=== PATIENT | male | born 1970 | race Caucasian/White ===

== ENCOUNTER 2016-12-17 12:07 | Emergency (ER) | payer BC, MEDICAID, OTHER, SELFPAY ==
[~2016-12-17] VITALS: Ht 177.8 cm; Wt 77.1 kg
[~2016-12-17 12:07] MED LIST: AUGM875T27 PO; CYCL10TA PO; LIDO5DIS36 TD; NAPR500T PO; PROZ20CA11 PO
[2016-12-17] MEDS ORDERED: CLINDAMYCIN 600 MG in APPROPRIATE DILUENT 1 EA IV ONE (13:30)
[2016-12-17] MEDS ORDERED: MORPHINE 4 MG/ML 1ML SYRINGE IV ONE (13:30)
[2016-12-17] MEDS ORDERED: LIDOCAINE 1% MDV 20ML VIAL IM ONE (13:30)
[2016-12-17 13:46] LABS: BASO # 0.1 K/mm3 (0.0-0.2); BASO % 0.7 % (0.0-1.0); EOS # 0.4 K/mm3 (0.0-0.50); EOS % 3.8 % (0.0-3.0); LARGE UNSTAINED CELL # 0.2 K/mm3 (0.0-0.4); LARGE UNSTAINED CELL % 1.3 % (0.0-4.0); LYMPH # 2.2 K/mm3 (1.5-4.5); LYMPH % 17.5 % (24.0-44.0); MEAN CORPUSCULAR HEMOGLOBIN 29.2 pg (27.0-33.0); MEAN CORPUSCULAR HGB CONC 32.2 g/dl (32.0-36.5); MEAN CORPUSCULAR VOLUME 90.5 fl (80.0-96.0); MONO # 0.6 K/mm3 (0.0-0.8); MONO % 5.2 % (0.0-5.0); NEUTROPHILS # 8.2 K/mm3 (1.8-7.7); NEUTROPHILS % 71.5 % (36.0-66.0); PLATELET COUNT, AUTOMATED 316 k/mm3 (150-450); RED CELL DISTRIBUTION WIDTH 11.6 % (11.5-14.5); WHITE BLOOD COUNT 11.5 K/mm3 (4.0-10.0)
[2016-12-17 14:01] LABS: ANION GAP 4 MEQ/L (8-16); BLOOD UREA NITROGEN 15 MG/DL (7-18); CALCIUM LEVEL 8.9 MG/DL (8.5-10.1); CARBON DIOXIDE LEVEL 35 MEQ/L (21-32); CHLORIDE LEVEL 101 MEQ/L (98-107); CREATININE FOR GFR 0.93 MG/DL (0.70-1.30); GLOMERULAR FILTRATION RATE > 60.0 (>60); GLUCOSE, FASTING 86 MG/DL (70-105); SODIUM LEVEL 140 MEQ/L (136-145)
[2016-12-17] MEDS ORDERED: MORPHINE 2 MG/ML 1ML SYRINGE IV ONE (14:15)
[2016-12-17] MEDS ORDERED: CLEO300C2 PO (14:18)
[2016-12-17] MEDS ORDERED: NAPR500T PO (14:19)
[2016-12-17 14:38] VITALS: BP 128/75
== END 2016-12-17 14:40 | disposition home or self-care (01) ==
LOC: M ED 13:49
DX: L03.113 Cellulitis of right upper limb (principal); F99 Mental disorder, not otherwise specified; F17.210 Nicotine dependence, cigarettes, uncomplicated; F19.10 Other psychoactive substance abuse, uncomplicated

== ENCOUNTER 2018-10-26 12:17 | Inpatient (IN) | payer MEDICAID, OTHER ==
[~2018-10-26] VITALS: Ht 177.8 cm; Wt 68.9 kg
[~2018-10-26 12:17] MED LIST changes: -AUGM875T27 PO; +AUGM875T28 PO; +CLEO300C2 PO; -LIDO5DIS36 TD; +LIDO5DIS41 TD; +NAPR-50 PO; -NAPR500T PO
[2018-10-26 13:17] LABS: HEMATOCRIT 44.7 % (42.0-52.0); HEMOGLOBIN 15.2 g/dl (13.5-17.5); MEAN CORPUSCULAR HEMOGLOBIN 30.5 pg (27.0-33.0); MEAN CORPUSCULAR VOLUME 89.8 fl (80.0-96.0); PLATELET COUNT, AUTOMATED 210 10^3/uL (150-450); RED BLOOD COUNT 4.98 10^6/uL (4.30-6.10); WHITE BLOOD COUNT 7.8 10^3/uL (4.0-10.0)
[2018-10-26 13:41] LABS: ACETAMINOPHEN LEVEL < 2.0 UG/ML (10.0-30.0); ALBUMIN 3.6 GM/DL (3.2-5.2); ALT/SGPT 24 U/L (12-78); BILIRUBIN,DIRECT 0.2 MG/DL (0.0-0.2); BILIRUBIN,TOTAL 0.6 MG/DL (0.2-1.0); BLOOD UREA NITROGEN 10 MG/DL (7-18); CALCIUM LEVEL 8.2 MG/DL (8.5-10.1); CARBON DIOXIDE LEVEL 31 MEQ/L (21-32); CHLORIDE LEVEL 106 MEQ/L (98-107); CREATININE FOR GFR 0.89 MG/DL (0.70-1.30); ETHYL ALCOHOL (ETHANOL) < 0.003 % (0.000-0.010); GLOMERULAR FILTRATION RATE > 60.0 (>60); GLUCOSE, FASTING 96 MG/DL (70-100); POTASSIUM SERUM 4.1 MEQ/L (3.5-5.1); SALICYLATE LEVEL < 1.7 MG/DL (5.0-30.0); SODIUM LEVEL 141 MEQ/L (136-145); THYROID STIMULATING HORMONE 0.402 uIU/ML (0.358-3.740); TOTAL PROTEIN 6.4 GM/DL (6.4-8.2)
[2018-10-26 14:13] LABS: AMPHETAMINES LEVEL URINE NEGATIVE (NEGATIVE); BARBITURATES URINE NEGATIVE (NEGATIVE); BENZODIAZEPINES URINE NEGATIVE (NEGATIVE); CANNABINOIDS URINE POSITIVE (NEGATIVE); COCAINE METABOLITE URINE POSITIVE (NEGATIVE); METHADONE URINE NEGATIVE (NEGATIVE); OPIATES URINE NEGATIVE (NEGATIVE); PHENCYCLIDINE URINE NEGATIVE (NEGATIVE)
[2018-10-26] MEDS ORDERED: MAALOX 30 ML SUSP *UDC PO PRN (15:15)
[2018-10-26] MEDS ORDERED: ACETAMINOPHEN TAB 650MG DOSE (2X325MG) PO PRN (15:15)
[2018-10-26] MEDS ORDERED: traZODone 50 MG TAB PO PRN (15:15)
[2018-10-26] MEDS ORDERED: MOM 30ML SUSPENSION UDC PO PRN (15:15)
[2018-10-26 16:56] VITALS: BP 112/76
[2018-10-26] MEDS: NICOTINE 21MG/24HR 1 EA TRANSDERMAL TD SCH (17:05)
[2018-10-27 06:40] VITALS: BP 138/64
[2018-10-27] MEDS: NICOTINE 21MG/24HR 1 EA TRANSDERMAL TD SCH (09:14)
--- NOTE | 2018-10-27 10:25 | HPE ---
DATE OF ADMISSION: 10/26/2018 HISTORY OF PRESENT ILLNESS (HPI): Please refer to the psychiatric history and evaluation for further details on this admission. This examination and history is intended for medical issues, which may need treatment, followup or consult on this 48-year-old male. ALLERGIES: NO KNOWN ALLERGIES. SOCIAL HISTORY: He is single. He smokes one pack of cigarettes per day. Ethyl alcohol (EtOH): He has not had drank in 2 years. Illicit drug use: Methamphetamine, crack cocaine, marijuana. HOME MEDICATIONS: None. PAST MEDICAL HISTORY: 1. Chronic low back pain. 2. Depression/anxiety. PAST SURGICAL HISTORY: Repair of pyloric stenosis as an infant. FAMILY HISTORY: Mother alive and well. Father alive with diabetes. He has one child that committed suicide at 18 via gunshot. He has two other living children. LABORATORY STUDIES: CBC was normal. Sodium was 141, potassium 4.1, chloride 103, CO2 31, BUN 10, creatinine 0.89, calcium 8.2. Urine was positive for cocaine, positive for cannabinoids. 11 system review was done, unremarkable other than chronic low back pain. PHYSICAL EXAMINATION: 48-year-old, cooperative male, in no acute distress. Height 70 inches. Weight 68.6 kg. Body mass index (BMI) 21.7. Blood pressure 112/76. Pulse 60. Respirations 18. Temperature 98.1. Oxygen saturation 100% on room air. Patient is alert and oriented times three. Pupils equal and react to light. Extraocular movements (EOMS) intact. Cornea and sclerae clear. Conjunctiva is normal. No facial asymmetry. Tympanic membranes (TMS) are pearly bilaterally. Pharynx, tongue and gums pink and moist. Tongue is midline. Neck is supple, without lymphadenopathy. No thyromegaly. No goiter. Carotids 2+ without bruits. Chest clear to auscultation, without wheeze or retraction. Heart is regular, without murmur or gallop. Abdomen benign. Bowel sounds positive. Genitourinary ()/rectal not done. Extremities show equal strength, full range of motion. No cyanosis, clubbing or edema. Peripheral pulse equal and palpable bilaterally. Cranial nerves III-XII grossly intact. IMPRESSION/PLAN: Psychiatric: Plan per psychiatry. EKG on file 10/15/2014 shows sinus rhythm with slight sinus arrhythmia. Tobacco abuse: Nicotine patch available. Chronic low back pain. Substance abuse: Monitor for withdrawal. No acute medical issues.
--- NOTE | 2018-10-27 10:28 | MHHPEPDOC ---
General Date Of Admission: Oct 26, 2018 Legal Status: 9.39 Chief Complaint "I want to stop using methamphetamine." History of Present Illness HISTORY OF THE PRESENT ILLNESS: Patient is a 48 -year-old , male, with a history of depression, substance abuse, last admitted [facility] 12/24/15 for SI who present to ED endorsing depression and passive SI to fall asleep and not wake up due to desire to stop using methamphetamine. Pt stated in ED that he last use methamphetamine 4-5 days prior admission and used crack night prior admission. Pt also stated he's homeless sleeping on various family members couches and unemployed. Denies intent/plan for SI, denied HI in ED. Psychiatric Review of Systems Depression (2 or more weeks): depressed mood, difficulty concentrating, suicidal thoughts Laura (4 or more days of): denies Psychosis: denies Anxiety: situational anxiety, stressor related anxiety Anxiety/ 6 months or more of: restlessness, keyed up, difficulty concentrating Past Psychiatric History Previous Psychiatric Diagnosis: depression, substance abuse Previous Psychiatric Admissions: [facility] 12/24/15 for SI Suicide Attempts: denies Psychiatric Follow-up: no current Psychiatric medications: noncompliant, was on prozac in past Past Medical History Medical Problems denies Head Injury: No Seizures: No Hospitalizations: Yes Surgeries: Yes (Pyloric stenosis repair as an infant) Family Medical/Psychiatric HX Medical Problems noncontributory Psychiatric Disorders: No Addiction: No Suicide Attemps/Completions: No Addiction History nicotine, cocaine, amphetamines, methamphetamines, other (cannabis) Social History Childhood: born and raised in [place], 2 parent home, 3rd child or 6 total, good childhood Abuse/Trauma:denies Current Living Situation: homeless staying with various family members Education: high school Employment: unemployed, 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 Social Support: family Legal: incarcerated 1yr 11/05/15 for methamphetamine, DWI 10yrs ago Marital: single, never , 3 adult children he has very little contact with Mental Status Examination General Appearance: disheveled, ds/not appear stated age (older), hospital scubs/clothing Build: average Demeanor: average, withdrawn Activity: average, anxious Behavior: cooperative, withdrawn Speech: clear, spontaneous, normal volume, reg/rate,rhythm,volume Mood: depressed, anxious Mood depressed Affect: constricted, flat, appropriate, congruent, anxious Thought Process: logical/linear, slow, intact Thought Content (Delusions): none reported, denies SI, HI, AVH Thought Content (Other): none reported, appropriate Thought Content (Aggressive): none reported Perception (Hallucinations): none reported Perception (Other): none reported Cognition (Impairment of): none reported Cognition(Intelligence Est.): average Oriented: Awake, Alert, Oriented times three Insight: fair Judgment: Fair Psychosis: Denies Diagnoses Depression unspecified R/O substance induced depression secondary Methamphetamine Methamphetamine/cocaine/cannabis use d/o Assessment Pt seen and states he just wanted to stop using methamphetamine and get on with his life. States he feels better today and denies passive SI, SI. Endorses depression and anxiety. States he didn't feel prozac he was on when last here wasn't helpful so stopped on his own. Agreeable to starting effexor xr for anxiety and depression, risks/benefits discussed. Feels safe here. Denies hallucinations, delusions. Initial Treatment Plan 1. Patient was admitted on a 939 status. 2. Complete history was obtained. 3. With patients permission, family will be contacted and database will be expanded. 4. Patients medication regimen will be reviewed and changed accordingly. 5. Patient will be provided with protected environment. 6. Patient will be treated with individual, group, and milieu therapies. 7. Patient will receive supportive psych-education. 8. Discharge planning will commence immediately. 9. Outpatient follow-up treatment will be strongly recommended. 10. The initial treatment plan will focus initially on: * Depression. * Risk for suicide. * Substance abuse. 11. effexor xr 37.5 mg daily, vistaril 25mg q6hr prn anxiety ESTIMATED LENGTH OF STAY: 3-5 DAYS. TIME SPENT COUNSELING AND COORDINATING INITIAL CARE: 30 minutes. Vital Signs Vital Signs Date Time Temp Pulse Resp B/P (MAP) Pulse Ox O2 Delivery O2 Flow Rate FiO2 10/27/18 06:40 99.0 50 16 138/64 (88) 10/26/18 15:36 100 10/26/18 12:17 Room Air Laboratory Data 24H Labs Laboratory Tests 2 10/26/18 12:27: Anion Gap 4L, Glomerular Filtration Rate > 60.0, Calcium Level 8.2L, Aspartate Amino Transf (AST/SGOT) 24, Alanine Aminotransferase (ALT/SGPT) 24, Alkaline Phosphatase 52, Total Bilirubin 0.6, Direct Bilirubin 0.2, Total Protein 6.4, Albumin 3.6, Albumin/Globulin Ratio 1.29, Thyroid Stimulating Hormone (TSH) 0.402, Salicylates Level < 1.7L, Acetaminophen Level < 2.0L, Ethyl Alcohol Level < 0.003 10/26/18 12:48: Nucleated Red Blood Cells % (auto) 0.0 10/26/18 13:38: Urine Amphetamines Screen NEGATIVE, Urine Benzodiazepines Screen NEGATIVE, Urine Opiates Screen NEGATIVE, Urine Methadone Screen NEGATIVE, Urine Barbiturates Screen NEGATIVE, Urine Phencyclidine Screen NEGATIVE, Urine Cocaine Metabolite Screen POSITIVEH, Urine Cannabinoids Screen POSITIVEH CBC/BMP Laboratory Tests 10/26/18 12:27 10/26/18 12:48 Red Blood Count 4.98, Mean Corpuscular Volume 89.8, Mean Corpuscular Hemoglobin 30.5, Mean Corpuscular Hemoglobin Concent 34.0, Red Cell Distribution Width 11.8 Medications No Active Prescriptions or Reported Meds Allergies Coded Allergies: No Known Allergies (Unverified , 12/23/15) ALISON TRAVIS DO Oct 27, 2018 10:28 am
[2018-10-27] MEDS ORDERED: hydrOXYzine 25 MG TAB PO PRN (10:30)
[2018-10-27] MEDS ORDERED: VENLAFAXINE **XR** 37.5 MG CAPSULE PO ONE (10:45)
[2018-10-27 18:35] VITALS: BP 131/84
[2018-10-28 06:11] VITALS: BP 158/67
--- NOTE | 2018-10-28 08:58 | MHIPNPDOC ---
[facility] Progress Note Progress Note DATE OF SERVICE: 10/28/18 HISTORY: Patient is a 48 -year-old , male, with a history of depression, substance abuse, last admitted [facility] 12/24/15 for SI who present to ED endorsing depression and passive SI to fall asleep and not wake up due to desire to stop using methamphetamine. Pt stated in ED that he last use methamphetamine 4-5 days prior admission and used crack night prior admission. Pt also stated he's homeless sleeping on various family members couches and unemployed. Denies intent/plan for SI, denied HI in ED. VITAL SIGNS: See below. NEW TEST RESULTS: See below. CURRENT MEDICATIONS: See below. MENTAL STATUS EXAMINATION: General Appearance: disheveled, ds/not appear stated age (older), hospital scubs/clothing Build: average Demeanor: average, withdrawn Activity: average, anxious Behavior: cooperative, withdrawn Speech: clear, spontaneous, normal volume, reg/rate,rhythm,volume Mood: depressed, anxious Mood depressed Affect: constricted, flat, appropriate, congruent, anxious Thought Process: logical/linear, slow, intact Thought Content (Delusions): none reported, denies SI, HI, AVH Thought Content (Other): none reported, appropriate Thought Content (Aggressive): none reported Perception (Hallucinations): none reported Perception (Other): none reported Cognition (Impairment of): none reported Cognition(Intelligence Est.): average Oriented: Awake, Alert, Oriented times three Insight: fair Judgment: Fair Psychosis: Denies DIAGNOSES: Depression unspecified R/O substance induced depression secondary Methamphetamine Methamphetamine/cocaine/cannabis use d/o ASSESSMENT:Pt seen and states he feels better today as his meds are beneficial and he's tolerating him well. Endorses fatigue from withdrawing off methamp hetamine. States his anxiety is improved. Endorses depression still although less. Feels safe here. Denies SI/HI, hallucinations, delusions. MANAGEMENT PLAN: continue plan. medications effexor xr 37.5 mg daily vistaril 25mg q6hr prn anxiety TIME SPENT: 30 minutes. Vital Signs Vital Signs Date Time Temp Pulse Resp B/P (MAP) Pulse Ox O2 Delivery O2 Flow Rate FiO2 10/28/18 08:22 60 10/28/18 06:11 98.8 18 158/67 (97) 10/26/18 15:36 100 10/26/18 12:17 Room Air Current Medications Current Medications Acetaminophen (Tylenol Tab) 650 mg Q6HP PRN PO HEADACHE or DISCOMFORT; Start 10/26/18 at 15:15 Al Hydrox/Mg Hydrox/Simethicone (Mylanta) 30 ml Q4HP PRN PO HEARTBURN/INDIGESTION; Start 10/26/18 at 15:15 Home Med (Med Rec Complete!) ASDIRECTED XX ; Start 10/26/18 at 14:45; Stop 10/26/18 at 14:45; Status DC Hydroxyzine HCl (Atarax) 25 mg Q6HP PRN PO ANXIETY; Start 10/27/18 at 10:30 Magnesium Hydroxide (Milk Of Magnesia) 30 ml DAILYPRN PRN PO CONSTIPATION; Start 10/26/18 at 15:15 Nicotine (Nicoderm Cq 21mg) 1 patch DAILY TD Last administered on 10/27/18at 09:14; Start 10/26/18 at 09:00 Trazodone HCl (Desyrel) 50 mg QHSP PRN PO INSOMNIA Last administered on 10/26/18at 20:58; Start 10/26/18 at 15:15 Venlafaxine HCl (Effexor Xr) 37.5 mg DAILY PO ; Start 10/28/18 at 09:00 Allergies Coded Allergies: No Known Allergies (Unverified , 12/23/15) ALISON TRAVIS DO Oct 28, 2018 8:58 am
[2018-10-28] MEDS: NICOTINE 21MG/24HR 1 EA TRANSDERMAL TD SCH (09:13)
[2018-10-28] MEDS: VENLAFAXINE **XR** 37.5 MG CAPSULE PO SCH (09:13)
[2018-10-28 18:00] VITALS: BP 130/90
[2018-10-29 06:51] VITALS: BP 143/89
[2018-10-29] MEDS: VENLAFAXINE **XR** 37.5 MG CAPSULE PO SCH (09:26)
[2018-10-29] MEDS: NICOTINE 21MG/24HR 1 EA TRANSDERMAL TD SCH (09:26)
[2018-10-29 18:05] VITALS: BP 120/73
--- NOTE | 2018-10-29 19:10 | MHIPNPDOC ---
[facility] Progress Note Progress Note DATE OF SERVICE: 10/29/18 HISTORY: Patient is a 48 -year-old , male, with a history of depression, substance abuse, last admitted [facility] 12/24/15 for SI who present to ED endorsing depression and passive SI to fall asleep and not wake up due to desire to stop using methamphetamine. Pt stated in ED that he last use methamphetamine 4-5 days prior admission and used crack night prior admission. Pt also stated he's homeless sleeping on various family members couches and unemployed. Denies intent/plan for SI, denied HI in ED. VITAL SIGNS: See below. NEW TEST RESULTS: See below. CURRENT MEDICATIONS: See below. MENTAL STATUS EXAMINATION: General Appearance: disheveled, ds/not appear stated age (older), hospital scubs/clothing Build: average Demeanor: average, withdrawn Activity: average, anxious Behavior: cooperative, withdrawn Speech: clear, spontaneous, normal volume, reg/rate,rhythm,volume Mood: depressed, anxious Mood depressed Affect: constricted, flat, appropriate, congruent, anxious Thought Process: logical/linear, slow, intact Thought Content (Delusions): none reported, denies SI, HI, AVH Thought Content (Other): none reported, appropriate Thought Content (Aggressive): none reported Perception (Hallucinations): none reported Perception (Other): none reported Cognition (Impairment of): none reported Cognition(Intelligence Est.): average Oriented: Awake, Alert, Oriented times three Insight: fair Judgment: Fair Psychosis: Denies DIAGNOSES: Depression unspecified R/O substance induced depression secondary Methamphetamine Methamphetamine/cocaine/cannabis use d/o ASSESSMENT: Patient reports that he is feeling a little bit better, although he is still tired and anxious from using methamphetamines. He tells me this is not the first time that he uses meth, he has used before and it has made him depressed but he didn't develop hallucinations as a result of the use of such substances. Increased Effexor to 75 mgs PO daily MANAGEMENT PLAN: continue plan. medications effexor xr 75 mg daily vistaril 25mg q6hr prn anxiety TIME SPENT: 30 minutes. Vital Signs Vital Signs Date Time Temp Pulse Resp B/P (MAP) Pulse Ox O2 Delivery O2 Flow Rate FiO2 10/29/18 06:51 99.4 65 14 143/89 (107) 10/26/18 15:36 100 2/22/19 12:17 Room Air Current Medications Current Medications Acetaminophen (Tylenol Tab) 650 mg Q6HP PRN PO HEADACHE or DISCOMFORT; Start 10/26/18 at 15:15 Al Hydrox/Mg Hydrox/Simethicone (Mylanta) 30 ml Q4HP PRN PO HEARTBURN/INDIGESTION; Start 10/26/18 at 15:15 Home Med (Med Rec Complete!) ASDIRECTED XX ; Start 10/26/18 at 14:45; Stop 10/26/18 at 14:45; Status DC Hydroxyzine HCl (Atarax) 25 mg Q6HP PRN PO ANXIETY; Start 10/27/18 at 10:30 Magnesium Hydroxide (Milk Of Magnesia) 30 ml DAILYPRN PRN PO CONSTIPATION; Start 10/26/18 at 15:15 Nicotine (Nicoderm Cq 21mg) 1 patch DAILY TD Last administered on 10/29/18at 09:26; Start 10/26/18 at 09:00 Trazodone HCl (Desyrel) 50 mg QHSP PRN PO INSOMNIA Last administered on 10/26/18at 20:58; Start 10/26/18 at 15:15 Venlafaxine HCl (Effexor Xr) 37.5 mg DAILY PO Last administered on 10/29/18at 09:26; Start 10/28/18 at 09:00 Allergies Coded Allergies: No Known Allergies (Unverified , 12/23/15) PEDRO ATNONIO MD Oct 29, 2018 12:16
[2018-10-30] MEDS: NICOTINE 21MG/24HR 1 EA TRANSDERMAL TD SCH (08:39)
[2018-10-30] MEDS ORDERED: VENLAFAXINE **XR** 75MG CAPSULE PO SCH (09:00)
[2018-10-30 18:07] VITALS: BP 147/88
--- NOTE | 2018-10-30 22:25 | MHIPNPDOC ---
[facility] Progress Note Progress Note DATE OF SERVICE: 10/30/18 HISTORY: Patient is a 48 -year-old , male, with a history of depression, substance abuse, last admitted [facility] 12/24/15 for SI who present to ED endorsing depression and passive SI to fall asleep and not wake up due to desire to stop using methamphetamine. Pt stated in ED that he last use methamphetamine 4-5 days prior admission and used crack night prior admission. Pt also stated he's homeless sleeping on various family members couches and unemployed. Denies intent/plan for SI, denied HI in ED. VITAL SIGNS: See below. NEW TEST RESULTS: See below. CURRENT MEDICATIONS: See below. MENTAL STATUS EXAMINATION: General Appearance: disheveled, ds/not appear stated age (older), hospital scubs/clothing Build: average Demeanor: average, withdrawn, guilty Activity: average, anxious, depressed Behavior: cooperative, withdrawn Speech: clear, spontaneous, normal volume, reg/rate,rhythm,volume Mood: depressed, anxious Mood depressed Affect: constricted, flat, appropriate, congruent, anxious Thought Process: logical/linear, slow, intact Thought Content (Delusions): none reported, denies SI, HI, AVH Thought Content (Other): none reported, appropriate Thought Content (Aggressive): none reported Perception (Hallucinations): none reported Perception (Other): none reported Cognition (Impairment of): none reported Cognition(Intelligence Est.): average Oriented: Awake, Alert, Oriented times three Insight: fair Judgment: Fair Psychosis: Denies DIAGNOSES: Depression unspecified R/O substance induced depression secondary Methamphetamine Methamphetamine/cocaine/cannabis use d/o ASSESSMENT: Patient reports guilty thoughts about his methamphetamine use disorder, he is insightful about how damaging this problem has been for him and his family. He reports a 50% improvement in depression symptoms, but he still reports lack of energy, problems with attention and concentration, feelings of hopelessness and helplessness. MANAGEMENT PLAN: continue plan. medications effexor xr 150 mg daily as of tomorrow 10/31/17 vistaril 25mg q6hr prn anxiety TIME SPENT: 30 minutes. Vital Signs Vital Signs Date Time Temp Pulse Resp B/P (MAP) Pulse Ox O2 Delivery O2 Flow Rate FiO2 10/30/18 18:07 99.0 62 14 147/88 (107) 10/26/18 15:36 100 10/26/18 12:17 Room Air Current Medications Current Medications Acetaminophen (Tylenol Tab) 650 mg Q6HP PRN PO HEADACHE or DISCOMFORT; Start 10/26/18 at 15:15 Al Hydrox/Mg Hydrox/Simethicone (Mylanta) 30 ml Q4HP PRN PO HEARTBURN/INDIGESTION; Start 10/26/18 at 15:15 Home Med (Med Rec Complete!) ASDIRECTED XX ; Start 10/26/18 at 14:45; Stop 10/26/18 at 14:45; Status DC Hydroxyzine HCl (Atarax) 25 mg Q6HP PRN PO ANXIETY; Start 10/27/18 at 10:30 Magnesium Hydroxide (Milk Of Magnesia) 30 ml DAILYPRN PRN PO CONSTIPATION; Start 10/26/18 at 15:15 Nicotine (Nicoderm Cq 21mg) 1 patch DAILY TD Last administered on 10/30/18at 08:39; Start 10/26/18 at 09:00 Trazodone HCl (Desyrel) 50 mg QHSP PRN PO INSOMNIA Last administered on 10/26/18at 20:58; Start 10/26/18 at 15:15 Venlafaxine HCl (Effexor Xr) 37.5 mg DAILY PO Last administered on 10/29/18at 09:26; Start 10/28/18 at 09:00; Stop 10/29/18 at 13:42; Status DC Venlafaxine HCl (Effexor Xr) 75 mg DAILY PO Last administered on 10/30/18at 08:39; Start 10/30/18 at 09:00; Stop 10/30/18 at 12:19; Status DC Venlafaxine HCl (Effexor Xr) 150 mg QAM PO ; Start 10/31/18 at 09:00 Allergies Coded Allergies: No Known Allergies (Unverified , 12/23/15) PEDRO ANTONIO MD Oct 30, 2018 22:25
[2018-10-31 06:45] VITALS: BP 134/75
[2018-10-31] MEDS: VENLAFAXINE **XR** 75MG CAPSULE PO SCH (10:16)
[2018-10-31] MEDS: NICOTINE 21MG/24HR 1 EA TRANSDERMAL TD SCH (10:16)
--- NOTE | 2018-10-31 17:30 | MHIPNPDOC ---
[facility] Progress Note Progress Note DATE OF SERVICE: 10/31/18 ISTORY: Patient is a 48 -year-old , male, with a history of depression, substance abuse, last admitted [facility] 12/24/15 for SI who present to ED endorsing depression and passive SI to fall asleep and not wake up due to desire to stop using methamphetamine. Pt stated in ED that he last use methamphetamine 4-5 days prior admission and used crack night prior admission. Pt also stated he's homeless sleeping on various family members couches and unemployed. Denies intent/plan for SI, denied HI in ED. VITAL SIGNS: See below. NEW TEST RESULTS: See below. CURRENT MEDICATIONS: See below. MENTAL STATUS EXAMINATION: General Appearance: disheveled, ds/not appear stated age (older), hospital scrubs/clothing Build: average Demeanor: average, withdrawn, guilty Activity: average, anxious, depressed Behavior: cooperative, withdrawn Speech: clear, spontaneous, normal volume, reg/rate,rhythm,volume Mood: depressed, anxious Mood depressed, very anxious Affect: constricted, flat, appropriate, congruent, anxious Thought Process: logical/linear, slow, intact Thought Content (Delusions): none reported, denies SI, HI, AVH Thought Content (Other): none reported, appropriate Thought Content (Aggressive): none reported Perception (Hallucinations): none reported Perception (Other): none reported Cognition (Impairment of): none reported Cognition(Intelligence Est.): average Oriented: Awake, Alert, Oriented times three Insight: fair Judgment: Fair Psychosis: Denies DIAGNOSES: Depression unspecified R/O substance induced depression secondary Methamphetamine Methamphetamine/cocaine/cannabis use d/o ASSESSMENT: Patient reports that he heard about his PO, he says he contacted her, left a message and was able to speak to another PO. TW told him it's probably better for him to fix his legal problems before he goes into Rehab or into a dual diagnosis program because they could interrupt his treatment and arrest him before he ends his treatment. Patient became anxious but he was receptive and said he would talk to his Food Technician about this and he would call his PO again. Says his medications are working, he denies side effects from the medications. MANAGEMENT PLAN: continue plan. medications effexor xr 150 mg daily vistaril 25mg q6hr prn anxiety TIME SPENT: 30 minutes. Vital Signs Vital Signs Date Time Temp Pulse Resp B/P (MAP) Pulse Ox O2 Delivery O2 Flow Rate FiO2 10/31/18 06:45 97.9 52 14 134/75 (94) 10/26/18 15:36 100 10/26/18 12:17 Room Air Current Medications Current Medications Acetaminophen (Tylenol Tab) 650 mg Q6HP PRN PO HEADACHE or DISCOMFORT; Start 10/26/18 at 15:15 Al Hydrox/Mg Hydrox/Simethicone (Mylanta) 30 ml Q4HP PRN PO HEARTBURN/INDIGESTION; Start 10/26/18 at 15:15 Home Med (Med Rec Complete!) ASDIRECTED XX ; Start 10/26/18 at 14:45; Stop 10/26/18 at 14:45; Status DC Hydroxyzine HCl (Atarax) 25 mg Q6HP PRN PO ANXIETY; Start 10/27/18 at 10:30 Magnesium Hydroxide (Milk Of Magnesia) 30 ml DAILYPRN PRN PO CONSTIPATION; Start 10/26/18 at 15:15 Nicotine (Nicoderm Cq 21mg) 1 patch DAILY TD Last administered on 10/31/18at 10:16; Start 10/26/18 at 09:00 Trazodone HCl (Desyrel) 50 mg QHSP PRN PO INSOMNIA Last administered on 10/26/18at 20:58; Start 10/26/18 at 15:15 Venlafaxine HCl (Effexor Xr) 37.5 mg DAILY PO Last administered on 10/29/18at 09:26; Start 10/28/18 at 09:00; Stop 10/29/18 at 13:42; Status DC Venlafaxine HCl (Effexor Xr) 75 mg DAILY PO Last administered on 10/30/18at 08:39; Start 10/30/18 at 09:00; Stop 10/30/18 at 12:19; Status DC Venlafaxine HCl (Effexor Xr) 150 mg QAM PO Last administered on 10/31/18at 10:16; Start 10/31/18 at 09:00 Allergies Coded Allergies: No Known Allergies (Unverified , 12/23/15) PEDRO ANTONIO MD Oct 31, 2018 17:30
[2018-10-31 18:41] VITALS: BP 148/99
[2018-11-01 06:24] VITALS: BP 130/82
[2018-11-01] MEDS: NICOTINE 21MG/24HR 1 EA TRANSDERMAL TD SCH (09:17)
[2018-11-01] MEDS: VENLAFAXINE **XR** 75MG CAPSULE PO SCH (09:17)
[2018-11-01 18:00] VITALS: BP 126/72
[2018-11-02 06:06] VITALS: BP 142/89
[2018-11-02] MEDS: VENLAFAXINE **XR** 75MG CAPSULE PO SCH (10:17)
[2018-11-02] MEDS: NICOTINE 21MG/24HR 1 EA TRANSDERMAL TD SCH (10:18)
[2018-11-02 18:00] VITALS: BP 122/62
[2018-11-02] MEDS: QUEtiapine FUMARATE 100 MG TAB PO SCH (20:19)
[2018-11-02] MEDS ORDERED: QUEtiapine FUMARATE 25 MG TAB PO SCH (21:00)
[2018-11-03 06:00] VITALS: BP 141/82
[2018-11-03] MEDS: VENLAFAXINE **XR** 75MG CAPSULE PO SCH (09:53)
[2018-11-03] MEDS: NICOTINE 21MG/24HR 1 EA TRANSDERMAL TD SCH (09:53)
[2018-11-03 18:07] VITALS: BP 140/80
[2018-11-03] MEDS: QUEtiapine FUMARATE 100 MG TAB PO SCH (21:26)
[2018-11-04 06:30] VITALS: BP 130/78
[2018-11-04] MEDS: VENLAFAXINE **XR** 75MG CAPSULE PO SCH (10:19)
[2018-11-04] MEDS: NICOTINE 21MG/24HR 1 EA TRANSDERMAL TD SCH (10:19)
[2018-11-04 18:04] VITALS: BP 161/78
[2018-11-04] MEDS: QUEtiapine FUMARATE 100 MG TAB PO SCH (21:44)
[2018-11-05 06:00] VITALS: BP 128/85
[2018-11-05] MEDS: VENLAFAXINE **XR** 75MG CAPSULE PO SCH (08:54)
[2018-11-05] MEDS: NICOTINE 21MG/24HR 1 EA TRANSDERMAL TD SCH (08:54)
[2018-11-05] MEDS ORDERED: HYDR-3363 PO (11:49)
[2018-11-05] MEDS ORDERED: QUET1TAB8 PO (11:49)
[2018-11-05] MEDS ORDERED: VENL75CA47 PO (11:49)
[2018-11-05] MEDS ORDERED: NICO21PAT TD (11:49)
--- NOTE | 2018-11-05 18:48 | MHIPNPDOC ---
[facility] Progress Note Progress Note DATE OF SERVICE: 11/02/18 ISTORY: Patient is a 48 -year-old , male, with a history of depression, substance abuse, last admitted [facility] 12/24/15 for SI who present to ED endorsing depression and passive SI to fall asleep and not wake up due to desire to stop using methamphetamine. Pt stated in ED that he last use methamphetamine 4-5 days prior admission and used crack night prior admission. Pt also stated he's homeless sleeping on various family members couches and unemployed. Denies intent/plan for SI, denied HI in ED. VITAL SIGNS: See below. NEW TEST RESULTS: See below. CURRENT MEDICATIONS: See below. MENTAL STATUS EXAMINATION: General Appearance: disheveled, ds/not appear stated age (older), hospital scrubs/clothing Build: average Demeanor: average, withdrawn, guilty Activity: average, anxious, depressed Behavior: cooperative, withdrawn Speech: clear, spontaneous, normal volume, reg/rate,rhythm,volume Mood: depressed, anxious Mood depressed, very anxious Affect: constricted, flat, appropriate, congruent, anxious Thought Process: logical/linear, slow, intact Thought Content (Delusions): none reported, denies SI, HI, AVH Thought Content (Other): none reported, appropriate Thought Content (Aggressive): none reported Perception (Hallucinations): none reported Perception (Other): none reported Cognition (Impairment of): none reported Cognition(Intelligence Est.): average Oriented: Awake, Alert, Oriented times three Insight: fair Judgment: Fair Psychosis: Denies DIAGNOSES: Depression unspecified R/O substance induced depression secondary Methamphetamine Methamphetamine/cocaine/cannabis use d/o ASSESSMENT: Patient said he was having a good response to medication, he felt better and he said that he was able to speak to his PO who had been really nice and had been empathic to his current situation. He said he knew that he would have to go to assisted from [facility] before he even went to Rehab and he said he was ready to do it, because he wanted to leave the drugs for good. Patient is insightful and has been exhibiting brighter mood and affect. He could be discharged early next week. MANAGEMENT PLAN: continue plan. medications effexor xr 150 mg daily vistaril 25mg q6hr prn anxiety TIME SPENT: 30 minutes. Vital Signs Vital Signs Date Time Temp Pulse Resp B/P (MAP) Pulse Ox O2 Delivery O2 Flow Rate FiO2 11/02/18 06:06 99.0 54 16 142/89 (106) Current Medications Current Medications Acetaminophen (Tylenol Tab) 650 mg Q6HP PRN PO HEADACHE or DISCOMFORT; Start 10/26/18 at 15:15 Al Hydrox/Mg Hydrox/Simethicone (Mylanta) 30 ml Q4HP PRN PO HEARTBURN/INDIGESTION; Start 10/26/18 at 15:15 Home Med (Med Rec Complete!) ASDIRECTED XX ; Start 10/26/18 at 14:45; Stop 10/26/18 at 14:45; Status DC Hydroxyzine HCl (Atarax) 25 mg Q6HP PRN PO ANXIETY; Start 10/27/18 at 10:30 Magnesium Hydroxide (Milk Of Magnesia) 30 ml DAILYPRN PRN PO CONSTIPATION; Start 10/26/18 at 15:15 Nicotine (Nicoderm Cq 21mg) 1 patch DAILY TD Last administered on 11/02/18at 10:18; Start 10/26/18 at 09:00 Trazodone HCl (Desyrel) 50 mg QHSP PRN PO INSOMNIA Last administered on 10/26/18at 20:58; Start 10/26/18 at 15:15 Venlafaxine HCl (Effexor Xr) 37.5 mg DAILY PO Last administered on 10/29/18at 09:26; Start 10/28/18 at 09:00; Stop 10/29/18 at 13:42; Status DC Venlafaxine HCl (Effexor Xr) 75 mg DAILY PO Last administered on 10/30/18at 08:39; Start 10/30/18 at 09:00; Stop 10/30/18 at 12:19; Status DC Venlafaxine HCl (Effexor Xr) 150 mg QAM PO Last administered on 11/02/18at 10:17; Start 10/31/18 at 09:00 Allergies Coded Allergies: No Known Allergies (Unverified , 12/23/15) PEDRO ANTONIO MD Nov 02, 2018 17:53
--- NOTE | 2018-11-05 19:07 | MHDSPDOC ---
[facility] Discharge Summary Discharge Summary DATE OF ADMISSION: Oct 26, 2018 at 15:02 DATE OF DISCHARGE: Nov 05, 2018 at 13:00 DISCHARGE DIAGNOSES: 1. Major Depressive disorder, recurrent, severe 2. Generalized anxiety disorder 3. Methamphetamine use disorder 4. Cocaine use disorder 5. Cannabis use disorder 6. R/O methamphetamine induced depression REASON FOR ADMISSION: Patient is a 48 -year-old , male, with a history of depression, substance abuse, last admitted [facility] 12/24/15 for SI who present to ED endorsing depression and passive SI to fall asleep and not wake up due to desire to stop using methamphetamine. Pt stated in ED that he last use methamphetamine 4-5 days prior admission and used crack night prior admission. Pt also stated he's homeless sleeping on various family members couches and unemployed. Denies intent/plan for SI, denied HI in ED. CONSULTANTS INVOLVED: None TREATMENT AND PROGRESS ON THE UNIT : Patient was pleasant and cooperative. He was very depressed, tearful. He expressed feeling guilty, not wanting to live his life if he was going to continue using drugs. He felt hopeless, worthless and helpless, but during his stay, his mood and affect became brighter, he had a good response to medications. He was told that upon discharge he would have to to detention because his Po had said it was probably better for him to go and serve his time instead of going to a Rehab Program and have to interrupt it because he would have to go to detention. He was invested in his treatment, he attended groups and he always presented in a respectful way to peers and staff. Patient said he felt ready to be discharged and he was clear about the fact that he would have to be picked up by the Police and transferred to detention. HOSPITAL COURSE: As above DISCHARGE ASSESSMENT: He was not homicidal, not suicidal and not psychotic at the time of his discharge. MENTAL STATUS EXAMINATION ON DISCHARGE: General Appearance: disheveled, ds/not appear stated age (older), hospital scrubs/clothing Build: average Demeanor: average, withdrawn, guilty Activity: average, anxious, depressed Behavior: cooperative, withdrawn Speech: clear, spontaneous, normal volume, reg/rate,rhythm,volume Mood: depressed, anxious Mood depressed, very anxious Affect: constricted, flat, appropriate, congruent, anxious Thought Process: logical/linear, slow, intact Thought Content (Delusions): none reported, denies SI, HI, AVH Thought Content (Other): none reported, appropriate Thought Content (Aggressive): none reported Perception (Hallucinations): none reported Perception (Other): none reported Cognition (Impairment of): none reported Cognition(Intelligence Est.): average Oriented: Awake, Alert, Oriented times three Insight: fair Judgment: Fair Psychosis: Denies MEDICATIONS ON DISCHARGE: Scheduled Nicotine (Nicotine Transdermal Syst) 21 Mg/24 Hr Dis, 1 PATCH TD DAILY for nicotine withdrawals, #7 Quetiapine Fumerate (Quetiapine Fumarate) 100 Mg Tab, 100 MG PO QHS for MOOD/INSOMNIA, #7 Venlafaxine HCl (Venlafaxine HCl ER) 75 Mg Capcr, 225 MG PO QAM for DEPRESSION, #21 Scheduled PRN Hydroxyzine HCl (Hydroxyzine HCl) 25 Mg Tab, 25 MG PO Q6HP PRN for ANXIETY, #28 PLAN/FOLLOWUP ARRANGEMENTS: Patient was [facility] to [facility] facility. He was escorted by Officer Kori and Officer Durga The amount of time spent in the coordination of care for this patient was approximately 30 minutes. Vital Signs/I&Os Vital Signs Date Time Temp Pulse Resp B/P (MAP) Pulse Ox O2 Delivery O2 Flow Rate FiO2 11/05/18 06:00 97.9 60 14 128/85 (99) 100 Medications Scheduled Nicotine (Nicotine Transdermal Syst) 21 Mg/24 Hr Dis, 1 PATCH TD DAILY for nicotine withdrawals, #7 Quetiapine Fumerate (Quetiapine Fumarate) 100 Mg Tab, 100 MG PO QHS for MOOD/INSOMNIA, #7 Venlafaxine HCl (Venlafaxine HCl ER) 75 Mg Capcr, 225 MG PO QAM for DEPRESSION, #21 Scheduled PRN Hydroxyzine HCl (Hydroxyzine HCl) 25 Mg Tab, 25 MG PO Q6HP PRN for ANXIETY, #28 Allergies Coded Allergies: No Known Allergies (Unverified , 12/23/15) PEDRO ANTONIO MD Nov 05, 2018 19:07
== END 2018-11-05 13:00 | DRG 751 ==
LOC: M ED 12:17 → M ED INP 15:02 → M PSY 15:02
PROVIDERS: ADMIT Psychiatry & Neurology Psychiatry; ATTEND Psychiatry & Neurology Psychiatry
DX: F33.2 Major depressive disorder, recurrent severe without psychotic features (principal); F41.1 Generalized anxiety disorder; F12.90 Cannabis use, unspecified, uncomplicated; F14.90 Cocaine use, unspecified, uncomplicated; F15.90 Other stimulant use, unspecified, uncomplicated; M54.5 Low back pain; F17.210 Nicotine dependence, cigarettes, uncomplicated

== ENCOUNTER → 2019-01-02 | Outpatient (CLI) | payer MEDICAID ==
[~2019-01-02] MED LIST changes: +HYDR-3363 PO; -NAPR-50 PO; +NAPR-837 PO; +NICO21PAT TD; +QUET1TAB8 PO; +VENL75CA47 PO
[2019-01-02 07:30] LABS: BASO # 0.1 10^3/uL (0.0-0.2); BASO % 0.9 % (0.0-1.0); EOS # 0.5 10^3/uL (0.0-0.50); EOS % 5.6 % (0.0-3.0); HEMOGLOBIN 15.1 g/dl (13.5-17.5); LYMPH # 2.7 10^3/uL (1.5-4.5); LYMPH % 30.5 % (24.0-44.0); MEAN CORPUSCULAR HEMOGLOBIN 29.9 pg (27.0-33.0); MEAN CORPUSCULAR HGB CONC 33.6 g/dl (32.0-36.5); MEAN CORPUSCULAR VOLUME 89.1 fl (80.0-96.0); MONO # 0.9 10^3/uL (0.0-0.8); MONO % 10.2 % (0.0-5.0); NEUTROPHILS # 4.6 10^3/uL (1.8-7.7); NEUTROPHILS % 52.3 % (36.0-66.0); PLATELET COUNT, AUTOMATED 259 10^3/uL (150-450); RED BLOOD COUNT 5.05 10^6/uL (4.30-6.10); WHITE BLOOD COUNT 8.8 10^3/uL (4.0-10.0)
[2019-01-02 07:47] LABS: ALBUMIN 3.9 GM/DL (3.2-5.2); ALT/SGPT 37 U/L (12-78); BILIRUBIN,TOTAL 0.3 MG/DL (0.2-1.0); BLOOD UREA NITROGEN 19 MG/DL (7-18); CALCIUM LEVEL 8.3 MG/DL (8.5-10.1); CARBON DIOXIDE LEVEL 32 MEQ/L (21-32); CHLORIDE LEVEL 106 MEQ/L (98-107); GLOMERULAR FILTRATION RATE > 60.0 (>60); GLUCOSE, FASTING 91 MG/DL (70-100); POTASSIUM SERUM 4.3 MEQ/L (3.5-5.1); SODIUM LEVEL 143 MEQ/L (136-145)
[2019-01-02 11:30] LABS: HEPATITIS B CORE ANTIBODY IGM NEGATIVE (NEGATIVE)
[2019-01-02 11:32] LABS: HEPATITIS A ANTIBODY IGM NEGATIVE (NEGATIVE)
[2019-01-02 13:17] LABS: HEPATITIS B SURFACE ANTIGEN NEGATIVE (NEGATIVE)
[2019-01-02 13:47] LABS: HEPATITIS C VIRUS ABY INDEX 2.3 INDEX (<0.8)
[2019-01-02 14:25] LABS: APPEARANCE, URINE CLEAR (CLEAR); BACTERIA, URINE AUTO NEGATIVE (NEGATIVE); BILIRUBIN, URINE AUTO NEGATIVE (NEGATIVE); BLOOD, URINE BLOOD NEGATIVE (NEGATIVE); COLOR, URINE STRAW (YELLOW); GLUCOSE, URINE (UA) AUTO NEGATIVE (NEGATIVE); KETONE, URINE AUTO NEGATIVE (NEGATIVE); LEUKOCYTE ESTERASE, URINE AUTO NEGATIVE (NEGATIVE); NITRITE, URINE AUTO NEGATIVE (NEGATIVE); PROTEIN, URINE AUTO NEGATIVE (NEGATIVE); RBC, URINE AUTO 0 /HPF (0-3); SPECIFIC GRAVITY URINE AUTO 1.004 (1.002-1.035); SQUAMOUS EPITHELIAL CELL UR AU 0 /HPF (0-6); UROBILINOGEN, URINE AUTO 0.2 mg/dL (0.0-2.0); WBC, URINE AUTO 0 /HPF (0-3)
== END ==
LOC: M LAB 06:50
PROVIDERS: ATTEND Physician Assistant Medical
DX: Z02.2 Encounter for examination for admission to residential institution (principal)

== ENCOUNTER 2019-02-14 11:39 | Emergency (ER) | payer MEDICAID ==
[~2019-02-14] VITALS: Ht 177.8 cm; Wt 80.8 kg
[2019-02-14 11:40] VITALS: BP 141/94
== END 2019-02-14 12:25 | disposition home or self-care (01) ==
LOC: M ED 11:39
DX: R68.82 Decreased libido (principal); R53.83 Other fatigue; K21.9 Gastro-esophageal reflux disease without esophagitis; F33.9 Major depressive disorder, recurrent, unspecified; F41.9 Anxiety disorder, unspecified

== ENCOUNTER 2019-03-04 11:02 | Emergency (ER) | payer OTHER ==
[~2019-03-04] VITALS: Ht 177.8 cm; Wt 80.9 kg
[2019-03-04] MEDS ORDERED: IBUPROFEN 600 MG TAB PO ONE (13:00)
--- NOTE | 2019-03-04 13:22 | REP ---
Clinical: Trauma . Comparison: None . Findings: The ventricles, sulci, and cisterns are normal in position and appearance. Alfonso-white differentiation is maintained. No acute intracranial hemorrhage, mass/mass effect, pathology or trauma/injury. No evidence for acute infarction. No extra-axial fluid collection. Calvarium is intact. Paranasal sinuses and mastoid air cells are clear. Impression: Normal noncontrast head CT. No evidence for acute intracranial pathology or trauma/injury. Electronically Signed by Preston Harper MD 03/04/2019 01:13 P
--- NOTE | 2019-03-04 13:24 | REP ---
Clinical: Trauma. Technique: Axial noncontrast images from the skull base to the thoracic inlet with coronal and sagittal re-formations Findings: Examination is somewhat limited by motion artifact. Normal alignment and lordosis is maintained. Cervical vertebral bodies including transverse processes and spinous processes are intact and there is no evidence for acute fracture / compression injury or subluxation. Spinal canal is patent. Posterior elements are intact. Paravertebral soft tissues are normal. Impression: No evidence for acute pathology or trauma/injury. Electronically Signed by Preston Harper MD 03/04/2019 01:15 P
--- NOTE | 2019-03-04 13:44 | REP ---
Clinical: Trauma. Technique: AP and lateral views of the left tibia / fibula. Findings: No acute fracture dislocation. Skeletal structures, joint spaces, and surrounding soft tissues are normal. No subcutaneous emphysema or radiodense foreign body. Impression: No acute fracture dislocation. Electronically Signed by Preston Harper MD 03/04/2019 01:36 P
--- NOTE | 2019-03-04 13:45 | REP ---
Clinical: Trauma . Technique: AP, lateral, bilateral oblique views of the left elbow. Findings: No acute fracture or dislocation is appreciated. Joint spaces and surrounding soft tissues appear normal. Lateral view demonstrates normal positioning to the anterior and posterior fat pads without evidence for effusion/hemarthrosis. No subcutaneous emphysema or foreign body identified. Impression: Normal left elbow radiographs. Electronically Signed by Preston Harper MD 03/04/2019 01:37 P
--- NOTE | 2019-03-04 13:45 | REP ---
Clinical: Trauma. Technique: AP, lateral, bilateral oblique views right foot . Findings: The osseous structures and joint spaces are intact and normal. There is no evidence for acute fracture or dislocation. Surrounding soft tissues are unremarkable. No subcutaneous emphysema or radiodense foreign body. Impression: Normal right foot series . No acute fracture or dislocation. Electronically Signed by Preston Harper MD 03/04/2019 01:36 P
--- NOTE | 2019-03-04 13:47 | REP ---
Clinical: Trauma . Technique: AP, lateral, bilateral oblique, and coned-down views. Findings: Alignment and lordosis is maintained. The vertebral bodies including transverse process and spinous processes are intact and there is no evidence for acute fracture / compression injury or subluxation. No evidence for spondylolysis or spondylolisthesis. Focal degenerative changes and L5-S1 include endplate sclerosis, disc space narrowing, marginal spurring and hypertrophic facet changes. Impression: No acute fracture / compression injury or subluxation. Moderate focal degenerative changes at L5-S1. Electronically Signed by Preston Harper MD 03/04/2019 01:38 P
[2019-03-04 14:15] VITALS: BP 166/93
== END 2019-03-04 14:46 | disposition home or self-care (01) ==
LOC: M ED 11:02
DX: S50.312A Abrasion of left elbow, initial encounter (principal); S16.1XXA Strain of muscle, fascia and tendon at neck level, initial encounter; S09.90XA Unspecified injury of head, initial encounter; S90.31XA Contusion of right foot, initial encounter; W17.89XA Other fall from one level to another, initial encounter; K21.9 Gastro-esophageal reflux disease without esophagitis; F41.9 Anxiety disorder, unspecified; F32.9 Major depressive disorder, single episode, unspecified; Z79.899 Other long term (current) drug therapy

== ENCOUNTER → 2019-03-25 | Outpatient (REF) | payer OTHER ==
[2019-03-25 16:44] LABS: CREATININE FOR GFR 0.98 MG/DL (0.70-1.30); GLOMERULAR FILTRATION RATE > 60.0 (>60)
[2019-04-02 00:06] LABS: ANTINUCLEAR ANTIBODIES DIRECT Negative (Negative); HLA-B27 Negative (.)
== END ==
LOC: M LABDRAW1 15:40
PROVIDERS: ATTEND Physician Assistant
DX: M54.2 Cervicalgia (principal)

== ENCOUNTER → 2019-04-12 | Outpatient (CLI) | payer OTHER ==
[2019-04-12 11:05] LABS: BASO # 0.1 10^3/uL (0.0-0.2); EOS # 0.2 10^3/uL (0.0-0.50); EOS % 1.7 % (0.0-3.0); HEMOGLOBIN 16.2 g/dl (13.5-17.5); LYMPH # 1.6 10^3/uL (1.5-4.5); LYMPH % 17.8 % (24.0-44.0); MEAN CORPUSCULAR HGB CONC 33.8 g/dl (32.0-36.5); MEAN CORPUSCULAR VOLUME 88.9 fl (80.0-96.0); MONO # 0.5 10^3/uL (0.0-0.8); MONO % 5.9 % (0.0-5.0); NEUTROPHILS # 6.4 10^3/uL (1.8-7.7); NEUTROPHILS % 73.3 % (36.0-66.0); PLATELET COUNT, AUTOMATED 213 10^3/uL (150-450); WHITE BLOOD COUNT 8.7 10^3/uL (4.0-10.0)
[2019-04-12 11:19] LABS: ALBUMIN 4.2 GM/DL (3.2-5.2); ALT/SGPT 62 U/L (12-78); AMYLASE 61 U/L (25-115); BILIRUBIN,TOTAL 0.5 MG/DL (0.2-1.0); BLOOD UREA NITROGEN 32 MG/DL (7-18); CALCIUM LEVEL 9.5 MG/DL (8.5-10.1); CARBON DIOXIDE LEVEL 28 MEQ/L (21-32); CHLORIDE LEVEL 108 MEQ/L (98-107); CREATININE FOR GFR 1.46 MG/DL (0.70-1.30); GLOMERULAR FILTRATION RATE 55.1 (>60); GLUCOSE, FASTING 99 MG/DL (70-100); LIPASE 159 U/L (73-393); POTASSIUM SERUM 4.7 MEQ/L (3.5-5.1); SODIUM LEVEL 143 MEQ/L (136-145); TOTAL PROTEIN 7.4 GM/DL (6.4-8.2)
[2019-04-12 12:20] LABS: TESTOSTERONE 296 NG/DL (241-827)
[2019-04-12 12:25] LABS: HEPATITIS B SURFACE ANTIBODY POSITIVE (POSITIVE)
[2019-04-12 12:34] LABS: HEPATITIS B SURFACE ANTIGEN NEGATIVE (NEGATIVE)
[2019-04-18 15:06] LABS: HEPATITIS A IgG TOTAL Positive (Negative); HEPATITIS C QUANTITATION HCV Not Detected IU/mL (.)
== END ==
LOC: M LAB 10:17
PROVIDERS: ATTEND Physician Assistant Medical
DX: B18.2 Chronic viral hepatitis C (principal)

== ENCOUNTER → 2019-05-15 | Outpatient (REF) | payer OTHER | LOC: M LAB REF 13:18 | PROVIDERS: ATTEND Nurse Practitioner Family | DX: R53.83 Other fatigue (principal); I10 Essential (primary) hypertension; R10.11 Right upper quadrant pain ==

== ENCOUNTER → 2019-10-30 | Outpatient (CLI) | payer OTHER ==
[~2019-10-30] MED LIST changes: +QUET100T2 PO; -QUET1TAB8 PO
[2019-10-30 16:56] LABS: APPEARANCE, URINE CLEAR (CLEAR); BACTERIA, URINE AUTO NEGATIVE (NEGATIVE); BILIRUBIN, URINE AUTO NEGATIVE (NEGATIVE); BLOOD, URINE BLOOD NEGATIVE (NEGATIVE); COLOR, URINE YELLOW (YELLOW); GLUCOSE, URINE (UA) AUTO NEGATIVE (NEGATIVE); KETONE, URINE AUTO TRACE mg/dL (NEGATIVE); LEUKOCYTE ESTERASE, URINE AUTO NEGATIVE (NEGATIVE); NITRITE, URINE AUTO NEGATIVE (NEGATIVE); PROTEIN, URINE AUTO 2+ mg/dL (NEGATIVE); RBC, URINE AUTO 2 /HPF (0-3); SPECIFIC GRAVITY URINE AUTO 1.028 (1.002-1.035); SQUAMOUS EPITHELIAL CELL UR AU 0 /HPF (0-6); WBC, URINE AUTO 1 /HPF (0-3)
[2019-10-30 18:50] LABS: CHLAMYDIA DNA AMPLIFICATION NEGATIVE (NEGATIVE); GC DNA AMPLIFICATION NEGATIVE (NEGATIVE)
== END ==
LOC: M LAB 15:56
PROVIDERS: ATTEND Physician Assistant Medical
DX: E29.1 Testicular hypofunction (principal); N39.0 Urinary tract infection, site not specified

== ENCOUNTER 2020-09-19 13:45 | Inpatient (IN) | payer OTHER ==
[~2020-09-19] VITALS: Ht 177.8 cm; Wt 82.6 kg
[~2020-09-19 13:45] MED LIST changes: +CYCL-707 PO; -CYCL10TA PO
--- OUTSIDE RECORDS SUMMARY | 2020-09-19 13:49 | CCD ---
Author Author [facility] Organization [facility] Address Unknown Phone Unavailable Care Team Providers Care Cereal Chemist Name Role Phone Yolis GUTIERREZ PA Unavailable Unavailable MATT, M CYNDI PA Unavailable Unavailable MATT, M CYNDI PA Unavailable Unavailable MATT, M CYNDI PA Unavailable Unavailable MATT, M CYNDI PA Unavailable Unavailable MATT, M CYNDI PA Unavailable Unavailable MATT, M CYNDI PA Unavailable Unavailable MATT, M CYNDI PA Unavailable Unavailable MATT, M CYNDI PA Unavailable Unavailable MATT, M CYNDI PA Unavailable Unavailable MATT, M CYNDI PA Unavailable Unavailable MATT, M CYNDI PA Unavailable Unavailable MATT, M CYNDI PA Unavailable Unavailable MATT, M CYNDI PA Unavailable Unavailable MATT, M CYNDI PA Unavailable Unavailable MATT, M CYNDI PA Unavailable Unavailable MATT, M CYNDI PA Unavailable Unavailable MATT, M CYNDI PA Unavailable Unavailable Yolis GUTIERREZ Unavailable Unavailable Yolis GUTIERREZ Unavailable Unavailable Yolis GUTIERREZ PA Unavailable Unavailable Yolis GUTIERREZ PA Unavailable Unavailable MATTYolis PA Unavailable Unavailable Yolis GUTIERREZ Unavailable Unavailable Re-disclosure Warning The records that you are about to access may contain information from federally-assisted alcohol or drug abuse programs. If such information is present, then the following federally mandated warning applies: This information has been disclosed to you from records protected by federal confidentiality rules (42 CFR part 2). The federal rules prohibit you from making any further disclosure of this information unless further disclosure is expressly permitted by the written consent of the person to whom it pertains or as otherwise permitted by 42 CFR part 2. A general authorization for the release of medical or other information is NOT sufficient for this purpose. The Federal rules restrict any use of the information to criminally investigate or prosecute any alcohol or drug abuse patient.The records that you are about to access may contain highly sensitive health information, the redisclosure of which is protected by Article 27-F of the [facility] Public Health law. If you continue you may have access to information: Regarding HIV / AIDS; Provided by facilities licensed or operated by the [facility] Office of Mental Health; or Provided by the [facility] Office for People With Developmental Disabilities. If such information is present, then the following [facility] mandated warning applies: This information has been disclosed to you from confidential records which are protected by state law. State law prohibits you from making any further disclosure of this information without the specific written consent of the person to whom it pertains, or as otherwise permitted by law. Any unauthorized further disclosure in violation of state law may result in a fine or snf sentence or both. A general authorization for the release of medical or other information is NOT sufficient authorization for further disc losure. Encounters Encounter Providers Location Date Indications Data Source(s ) Outpatient Attender: CYNDI FLYNN Physical Therapy 12/2019 12:30:00 PM EST [facility] ([facility]) Outpatient Attender: CYNDI FLYNN Physical Therapy 09/05 01:45:00 PM EST [facility] ([facility]) Medications Medication Brand Name Start Date Product Form Dose Route Admi nistrative Instructions Pharmacy Instructions Status Indications Reaction Description Data Source(s) tizanidine 4 MG Oral Tablet Tizanidine HCL 11/06/2019 12:00:00 AM EST ORAL active [facility] ([facility]) Insurance Providers Payer name Policy type / Coverage type Policy ID Covered republican ID Covered republican's relationship to fleming Policy Fleming Plan Information [facility]AN [facility] [id number] SP [id number] [facility] [id number] SP [id number] [facility] [id number] SP [id number] [facility] [id number] [facility] Plan Commercial [id number] Self [id number] OTHER NO FAULT [id number] SP [id number] [facility] [id number] SP [id number] MEDICAID [id number] SP [id number] BCBS [place] [id number] SP [id number] SELF PAY ONLY [id number] SP [id number] [facility] [id number] SP [id number] SELF PAY [id number] SP [id number] SELF PAY ONLY [id number] SP [id number] MEDICAID M [id number] S [id number] Surgeries/Procedures Procedure Description Date Indications Data Source(s) Physical Therapy Eval - Low Complexity 10/15/2019 12:0 0:00 AM EST [facility] ([facility] ) THERAPEUTIC PX 1/> AREAS EACH 15 MIN EXERCISES 019 12:00:00 AM EST [facility] ([facility] ) MANUAL THERAPY TQS 1/> REGIONS EACH 15 MINUTES 019 12:00:00 AM EST [facility] ([facility] ) THERAPEUTIC PX 1/> AREAS EACH 15 MIN EXERCISES 019 12:00:00 AM EST [facility] ([facility] ) MANUAL THERAPY TQS 1/> REGIONS EACH 15 MINUTES 019 12:00:00 AM EST [facility] ([facility] ) THERAPEUTIC PX 1/> AREAS EACH 15 MIN EXERCISES 12:00:00 AM EST [facility] ([facility] ) MANUAL THERAPY TQS 1/> REGIONS EACH 15 MINUTES 12:00:00 AM EST [facility] ([facility] ) THERAPEUTIC PX 1/> AREAS EACH 15 MIN EXERCISES 12:00:00 AM EST [facility] ([facility] ) MANUAL THERAPY TQS 1/> REGIONS EACH 15 MINUTES 12:00:00 AM EST [facility] ([facility] ) THERAPEUTIC PX 1/> AREAS EACH 15 MIN EXERCISES 12:00:00 AM EST [facility] ([facility] ) MANUAL THERAPY TQS 1/> REGIONS EACH 15 MINUTES 12:00:00 AM EST [facility] ([facility] )
[2020-09-19] MEDS ORDERED: METO1TAB7 PO (13:56)
[2020-09-19] MEDS ORDERED: BACL1TAB9 PO (13:56)
[2020-09-19] MEDS ORDERED: LORazepam 2 MG/ML VIAL IV STA ×4 (14:00→17:07)
[2020-09-19] MEDS ORDERED: NS 1,000 ML IV ONE ×2 (14:00→16:45)
[2020-09-19] MEDS ORDERED: METOPROLOL TART 50 MG TAB PO ONE (14:00)
[2020-09-19 14:24] LABS: BASO # 0.1 10^3/uL (0.0-0.2); BASO % 0.5 % (0.0-1.0); EOS % 0.1 % (0.0-3.0); HEMATOCRIT 46.9 % (42.0-52.0); HEMOGLOBIN 16.2 g/dl (13.5-17.5); LYMPH # 2.1 10^3/uL (1.5-5.0); LYMPH % 14.6 % (24.0-44.0); MEAN CORPUSCULAR HEMOGLOBIN 29.7 pg (27.0-33.0); MEAN CORPUSCULAR HGB CONC 34.5 g/dl (32.0-36.5); MEAN CORPUSCULAR VOLUME 86.1 fl (80.0-96.0); MONO % 6.7 % (0.0-5.0); NEUTROPHILS # 11.4 10^3/uL (1.5-8.5); NEUTROPHILS % 77.6 % (36.0-66.0); PLATELET COUNT, AUTOMATED 269 10^3/uL (150-450); RED BLOOD COUNT 5.45 10^6/uL (4.30-6.10); WHITE BLOOD COUNT 14.7 10^3/uL (4.0-10.0)
[2020-09-19] MEDS: METOPROLOL 5 MG/5 ML VIAL IV SCH ×3 (14:28→14:42)
--- OUTSIDE RECORDS SUMMARY | 2020-09-19 14:43 | CCD ---
Author Author [facility] Organization [facility] Address Unknown Phone Unavailable Care Team Providers Care Line Pilot Name Role Phone Yolis GUTIERREZ Unavailable Unavailable MATTYolis PA Unavailable Unavailable MATTYolis CYNDI PA Unavailable Unavailable MATT, M CYNDI PA Unavailable Unavailable MATTYolis CYNDI PA Unavailable Unavailable MATT, M CYNDI PA Unavailable Unavailable MATT, M CYNDI PA Unavailable Unavailable MATT M CYNDI PA Unavailable Unavailable MATT M CYNDI PA Unavailable Unavailable MATT M CYNDI PA Unavailable Unavailable MATT M CYNDI PA Unavailable Unavailable MATT, M CYNDI PA Unavailable Unavailable MATT, M CYNDI PA Unavailable Unavailable MATT, M CYNDI PA Unavailable Unavailable MATT, M CYNDI PA Unavailable Unavailable MATTYolis CYNDI PA Unavailable Unavailable MATT, M CYNDI PA Unavailable Unavailable MATT, M CYNDI PA Unavailable Unavailable MATT, Yolis HANNA PA Unavailable Unavailable MATT, Yolis HANNA PA Unavailable Unavailable MATT, Yolis HANNA PA Unavailable Unavailable MATT, Yolis HANNA PA Unavailable Unavailable MATT, Yolis HANNA PA Unavailable Unavailable MATT, Yolis HANNA PA Unavailable Unavailable Re-disclosure Warning The records that [...] is protected by Article 27-F of the [facility] Public Health law. If you continue you may have access to information: Regarding HIV / AIDS; Provided by facilities licensed or operated by the [facility] Office of Mental Health; or Provided by the [facility] Office for People With Developmental Disabilities. If such information is present, then the following [facility] mandated warning applies: This information has [...] law may result in a fine or mcfp sentence or both. A general authorization for the release of medical or other information is NOT sufficient authorization for further disc losure. Encounters Encounter Providers Location Date Indications Data Source(s ) Outpatient Attender: CYNDI FLYNN Physical Therapy 12/2019 12:30:00 PM EST [facility] ([facility]) Outpatient Attender: CYNDI FLYNN Physical Therapy 09/05 01:45:00 PM EST [facility] ([facility]) Medications Medication Brand Name Start Date Product Form Dose Route Admi nistrative Instructions Pharmacy Instructions Status Indications Reaction Description Data Source(s) tizanidine 4 MG Oral Tablet Tizanidine HCL 11/06/2019 12:00:00 AM EST ORAL active [facility] ([facility] ) Insurance Providers Payer name Policy type / Coverage type Policy ID Covered libertarian ID Covered libertarian's relationship to fleming Policy Fleming Plan Information [facility] [id number] SP [id number] [facility] [id number] SP [id number] [facility] [id number] SP [id number] [facility] [id number] SP [id number] [facility] Plan Commercial [id number] Self [id number] OTHER NO FAULT [id number] SP [id number] [facility] COMMUN[facility] PLAN MCDO [id number] SP [id number] MEDICAID [id number] SP [id number] BCBS [place] 304/[id number] SP [id number] SELF PAY ONLY [id number] SP [id number] [facility] [id number] SP [id number] SELF PAY [id number] SP [id number] SELF PAY ONLY [id number] SP [id number] MEDICAID M [id number] S [id number] Surgeries/Procedures Procedure Description Date Indications Data Source(s) Physical Therapy Eval - Low Complexity 10/15/2019 12:0 0:00 AM EST [facility] ([facility] ) THERAPEUTIC PX 1/> AREAS EACH 15 MIN EXERCISES 019 12:00:00 AM EST [facility] ([facility] ) MANUAL THERAPY TQS 1/> REGIONS EACH 15 MINUTES 019 12:00:00 AM EST [facility] ([facility] ) THERAPEUTIC PX 1/> AREAS EACH 15 MIN EXERCISES 019 12:00:00 AM EST [facility] ([facility] ) MANUAL THERAPY TQS 1/> REGIONS EACH 15 MINUTES 019 12:00:00 AM EST [facility] ([facility] ) THERAPEUTIC PX 1/> AREAS EACH 15 MIN EXERCISES 12:00:00 AM EST [facility] ([facility] ) MANUAL THERAPY TQS 1/> REGIONS EACH 15 MINUTES 12:00:00 AM EST [facility] ([facility]) THERAPEUTIC PX 1/> AREAS EACH 15 MIN EXERCISES 12:00:00 AM EST [facility] ([facility]) MANUAL THERAPY TQS 1/> REGIONS EACH 15 MINUTES 12:00:00 AM EST [facility] ([facility] ) THERAPEUTIC PX 1/> AREAS EACH 15 MIN EXERCISES 12:00:00 AM EST [facility] ([facility]) MANUAL THERAPY TQS 1/> REGIONS EACH 15 MINUTES 12:00:00 AM EST [facility] ([facility]
[2020-09-19 15:16] LABS: ACETAMINOPHEN LEVEL < 2.0 UG/ML (10.0-30.0); ALBUMIN 4.4 GM/DL (3.2-5.2); ALT/SGPT 90 U/L (12-78); BILIRUBIN,DIRECT 0.3 MG/DL (0.0-0.2); BILIRUBIN,TOTAL 0.9 MG/DL (0.2-1.0); BLOOD UREA NITROGEN 27 MG/DL (7-18); CALCIUM LEVEL 9.3 MG/DL (8.5-10.1); CARBON DIOXIDE LEVEL 30 MEQ/L (21-32); CHLORIDE LEVEL 101 MEQ/L (98-107); CPK CREATINE PHOSPHOKINASE 2330 U/L (39-308); CREATININE FOR GFR 1.32 MG/DL (0.70-1.30); ETHYL ALCOHOL (ETHANOL) < 0.003 % (0.000-0.010); GLOMERULAR FILTRATION RATE > 60.0 (>60); GLUCOSE, FASTING 136 MG/DL (70-100); POTASSIUM SERUM 3.6 MEQ/L (3.5-5.1); SALICYLATE LEVEL < 1.7 MG/DL (5.0-30.0); SODIUM LEVEL 139 MEQ/L (136-145); TOTAL PROTEIN 7.7 GM/DL (6.4-8.2)
[2020-09-19] MEDS ORDERED: LORazepam 2 MG/ML VIAL As Ordered ONE (15:46)
[2020-09-19] MEDS ORDERED: ACETAMINOPHEN 325 MG TAB PO ONE (16:45)
[2020-09-19 17:07] LABS: AMPHETAMINES LEVEL URINE POSITIVE (NEGATIVE); BARBITURATES URINE NEGATIVE (NEGATIVE); BENZODIAZEPINES URINE NEGATIVE (NEGATIVE); CANNABINOIDS URINE NEGATIVE (NEGATIVE); COCAINE METABOLITE URINE NEGATIVE (NEGATIVE); METHADONE URINE NEGATIVE (NEGATIVE); OPIATES URINE NEGATIVE (NEGATIVE); PHENCYCLIDINE URINE NEGATIVE (NEGATIVE)
[2020-09-19] MEDS ORDERED: NAPR-885 PO (17:28)
[2020-09-19 18:15] LABS: RSV AMPLIFICATION NEGATIVE (NEGATIVE)
--- OUTSIDE RECORDS SUMMARY | 2020-09-19 18:24 | CCD ---
Author Author [facility] Organization [facility] Address Unknown Phone Unavailable Care Team Providers Care [employer] Caser Name Role Phone Yolis GUTIERREZ Unavailable Unavailable [...] is protected by Article 27-F of the [facility] Public Health law. If you continue you may have access to information: Regarding HIV / AIDS; Provided by facilities licensed or operated by the [facility] Office of Mental Health; or Provided by the [facility] Office for People With Developmental Disabilities. If such information is present, then the following [facility] mandated warning applies: This information has [...] law may result in a fine or long-term sentence or both. A general authorization for the release of medical or other information is NOT sufficient authorization for further disc losure. Encounters Encounter Providers Location Date Indications Data Source(s ) Outpatient Attender: CYNDI FLYNN Physical Therapy 12/2019 12:30:00 PM EST [facility] ([facility]) Outpatient Attender: CYNDI FLYNN Physical Therapy 09/05 01:45:00 PM EST [facility] ([facility]) Medications Medication Brand Name Start Date Product Form Dose Route Admi nistrative Instructions Pharmacy Instructions Status Indications Reaction Description Data Source(s) tizanidine 4 MG Oral Tablet Tizanidine HCL 11/06/2019 12:00:00 AM EST ORAL active [facility] ([facility] Insurance Providers Payer name Policy type / Coverage type Policy ID Covered democrat ID Covered democrat's relationship to fleming Policy Fleming Plan Information [facility] COMM[facility] PLAN [facility] [id number] SP [id number] [facility] PLAN [facility] [id number] SP [id number] [facility] PLAN [facility] [id number] SP [id number] [facility] [id number] SP [id number] [facility] Plan Commercial [id number] Self [id number] OTHER NO FAULT [id number] SP [id number] [facility] COMMUNITY PLAN MCDO [id number] SP [id number] MEDICAID [id number] SP [id number] BCBS [place] [id number] SP [id number] SELF PAY ONLY [id number] SP [id number] [facility] COMMUNITY PLAN [facility] [id number] SP [id number] SELF PAY [id number] SP [id number] SELF PAY ONLY [id number] SP [id number] MEDICAID M [id number] S [id number] Surgeries/Procedures Procedure Description Date Indications Data Source(s) Physical Therapy Eval - Low Complexity 10/15/2019 12:0 0:00 AM EST [facility] ([facility] ) THERAPEUTIC PX 1/> AREAS EACH 15 MIN EXERCISES 019 12:00:00 AM EST [facility] ([facility] ) MANUAL THERAPY TQS 1/> REGIONS EACH 15 MINUTES 019 12:00:00 AM EST [facility] ([facility] ) THERAPEUTIC PX 1/> AREAS EACH 15 MIN EXERCISES 019 12:00:00 AM EST [facility] ([facility] ) MANUAL THERAPY TQS 1/> REGIONS EACH 15 MINUTES 019 12:00:00 AM EST [facility] ([facility] ) THERAPEUTIC PX 1/> AREAS EACH 15 MIN EXERCISES 12:00:00 AM EST [facility] ([facility] ) MANUAL THERAPY TQS 1/> REGIONS EACH 15 MINUTES 12:00:00 AM EST [facility] ([facility]) THERAPEUTIC PX 1/> AREAS EACH 15 MIN EXERCISES 12:00:00 AM EST [facility] ([facility]) MANUAL THERAPY TQS 1/> REGIONS EACH 15 MINUTES 12:00:00 AM EST [facility] ([facility] ) THERAPEUTIC PX 1/> AREAS EACH 15 MIN EXERCISES 12:00:00 AM EST [facility] ([facility]) MANUAL THERAPY TQS 1/> REGIONS EACH 15 MINUTES 12:00:00 AM EST [facility] ([facility] )
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
[2020-09-19] MEDS ORDERED: NS 500 ML IV ONE (19:00)
[2020-09-19 20:20] VITALS: BP 124/82
[2020-09-20] MEDS: LORazepam 2 MG/ML VIAL IV PRN (02:50)
[2020-09-20 06:00] VITALS: BP 130/69
[2020-09-20 07:28] LABS: HEMATOCRIT 41.4 % (42.0-52.0); MEAN CORPUSCULAR HEMOGLOBIN 30.1 pg (27.0-33.0); MEAN CORPUSCULAR HGB CONC 33.8 g/dl (32.0-36.5); PLATELET COUNT, AUTOMATED 205 10^3/uL (150-450); RED BLOOD COUNT 4.65 10^6/uL (4.30-6.10); WHITE BLOOD COUNT 9.7 10^3/uL (4.0-10.0)
[2020-09-20 08:35] LABS: BLOOD UREA NITROGEN 19 MG/DL (7-18); CALCIUM LEVEL 8.1 MG/DL (8.5-10.1); CARBON DIOXIDE LEVEL 27 MEQ/L (21-32); CHLORIDE LEVEL 107 MEQ/L (98-107); CPK CREATINE PHOSPHOKINASE 1502 U/L (39-308); CREATININE FOR GFR 1.01 MG/DL (0.70-1.30); GLOMERULAR FILTRATION RATE > 60.0 (>60); GLUCOSE, FASTING 85 MG/DL (70-100); POTASSIUM SERUM 3.7 MEQ/L (3.5-5.1); SODIUM LEVEL 140 MEQ/L (136-145)
[2020-09-20] MEDS: METOPROLOL SUCC (TopROL XL) 50MG **XL** TAB PO SCH (09:36)
[2020-09-20 14:00] VITALS: BP 142/77
[2020-09-20] MEDS: NS 1,000 ML IV SCH (15:08)
--- NOTE | 2020-09-20 16:21 | IPNPDOC ---
Subjective Date Seen The patient was seen on 09/20/20. Subjective Chief Complaint/HPI Mr. Londono is a 50 year old male history of polysubstance abuse here with psychosis, ROXANNE 2/2 rhabdomyolysis, and amphetamine use. This morning, he was sleepy, but pleasant. Denied chest pain or dyspnea. In the late morning, he was more active and agitated. This afternoon, he wanted to leave against medical advice. I went down to see him. He was still agitated and animated. He was A&Ox3 and realized he was here because he messed up and took amphetamines. He said when he was high, he had a vision from God who told him that there was a chip behind his eye. In order to get to the [facility], he would need the chip to be removed. He had to blow really hard and then there was a procedure that would get the chip out. He tried blowing really hard and it didn't work. He wants to do more research on the procedure on the web. Otherwise, I spoke with the niece, Deanne ([phone]). The niece said he started taking amphetamines on Monday. He had hallucinations then, but she she knew it was from the drugs. Yesterday (Monday), he made homicidal and suicidal comments. He told her that God told him to cut off his face to remove the chip so he could go to the [facility]. He also said the Gold told him to do God's work and cut off the face of every Pentecostal so they could go to the [facility]. I ordered suicidal precautions and contacted psychiatry, Dr. Escobar. Objective Physical Examination General Exam: Positive: Other (Agitated and delusional) Eye Exam: Positive: EOMI; Negative: Sclera icteric ENT Exam: Positive: Mucous membr. moist/pink, Tongue Midline Neck Exam: Positive: Supple Chest Exam: Positive: Clear to auscultation; Negative: Rales, Rhonchi, Wheezing Heart Exam: Positive: Rate Normal, Regular Rhythm Abdomen Exam: Positive: Normal bowel sounds, Soft; Negative: Tenderness Extremity Exam: Negative: Edema Skin Exam: Positive: Other skin issue (Scabs on left chin) Neuro Exam: Positive: Other (Unable to perform as he was sedated) Psych Exam: Positive: Oriented x 3, Other (Has psychosis and delusions. He may act on his delusions); Negative: Mental status NL Assessment /Plan Assessment Mr. Londono is a 50 year old male history of polysubstance abuse here with psychosis, ROXANNE 2/2 rhabdomyolysis, and amphetamine use. Per nieceMarianoDeanne, patient has started taking amphetamines on Monday and has been having psychosis. It was on Monday, he started making homicidal and suicidal comments. He wanted to do God's work and cut off the face of every Pentecostal. He also told her to cut off his face as well. Patient will be on suicide precautions. If patient tries to leave against medical advice, he should be brought back until a psyc hiatrist evaluates him. Consulted psych, Dr. Escobar, recommendations appreciated. Plan/VTE VTE Prophylaxis Ordered?: Yes Plan 1. ROXANNE 2/2 rhabdomyolysis -CPK 2330 -Renal function and CPK improved -CPK not at goal -Continue IVF -Monitor CPK and BMP 2. Amphetamine use -Visual and auditory hallucinations -Supportive care and minimize stimuli (light and sound) -May need to use Ativan if he becomes agitated and combative -Sitter 3. Psychosis with homicidal and suicidal ideation -Per niece, patient made homicidal and suicidal comments on Monday which she called the police -He asked to niece to cut his face so he can go to the [facility]. -He told the niece that he had to do God's work and cut off the face of every Pentecostal so they can go to the [facility]. -Suicidal precautions -Consulted psych, Dr. Escobar 4. Hypertension -Blood pressure better controlled -Continue metoprolol 5. DVT ppx -Heparin subq Disposition: Cannot leave AMA, he would need to be brought back to the ED as he had HI/SI VS, I&O, 24H, Fishbone Vital Signs/I&O Vital Signs Date Time Temp Pulse Resp B/P (MAP) Pulse Ox O2 Delivery O2 Flow Rate FiO2 09/20/20 14:00 98.7 97 18 142/77 (98) 95 09/20/20 06:00 Nasal Cannula 2.0 I&O- Last 24 Hours up to 6 AM 09/20/20 06:00 Intake Total 2800 ml Output Total 450 ml Balance 2350 ml Laboratory Data 24H LABS Laboratory Tests 2 09/19/20 16:19: Urine Opiates Screen NEGATIVE, Urine Methadone Screen NEGATIVE, Urine Barbiturates Screen NEGATIVE, Urine Phencyclidine Screen NEGATIVE, Urine Amphetamines Screen POSITIVEH, Urine Benzodiazepines Screen NEGATIVE, Urine Cocaine Metabolite Screen NEGATIVE, Urine Cannabinoids Screen NEGATIVE 09/19/20 17:18: Coronavirus (COVID-19)(PCR) NEGATIVE, Influenza Type A (RT-PCR) NEGATIVE, Influenza Type B (RT-PCR) NEGATIVE, Respiratory Syncytial Virus (PCR) NEGATIVE 09/20/20 06:24: Nucleated Red Blood Cells % (auto) 0.0, Anion Gap 6L, Glomerular Filtration Rate > 60.0, Calcium Level 8.1L, Total Creatine Kinase 1502H CBC/BMP Laboratory Tests 09/20/20 06:24 MICHELLE PETTIT DO Sep 20, 2020 16:21
[2020-09-20 22:00] VITALS: BP 125/76
[2020-09-21] MEDS: NS 1,000 ML IV SCH (01:07)
[2020-09-21] MEDS: ACETAMINOPHEN TAB 650MG DOSE (2X325MG) PO PRN ×3 (04:53→22:19)
[2020-09-21 06:00] VITALS: BP 130/70
[2020-09-21 06:21] LABS: BLOOD UREA NITROGEN 16 MG/DL (7-18); CALCIUM LEVEL 7.8 MG/DL (8.5-10.1); CARBON DIOXIDE LEVEL 25 MEQ/L (21-32); CHLORIDE LEVEL 109 MEQ/L (98-107); CPK CREATINE PHOSPHOKINASE 655 U/L (39-308); CREATININE FOR GFR 0.87 MG/DL (0.70-1.30); GLOMERULAR FILTRATION RATE > 60.0 (>60); GLUCOSE, FASTING 89 MG/DL (70-100); POTASSIUM SERUM 3.8 MEQ/L (3.5-5.1); SODIUM LEVEL 141 MEQ/L (136-145)
[2020-09-21 06:53] LABS: HEMATOCRIT 40.3 % (42.0-52.0); HEMOGLOBIN 13.6 g/dl (13.5-17.5); MEAN CORPUSCULAR HEMOGLOBIN 29.5 pg (27.0-33.0); MEAN CORPUSCULAR HGB CONC 33.7 g/dl (32.0-36.5); MEAN CORPUSCULAR VOLUME 87.4 fl (80.0-96.0); PLATELET COUNT, AUTOMATED 198 10^3/uL (150-450); RED BLOOD COUNT 4.61 10^6/uL (4.30-6.10); WHITE BLOOD COUNT 6.7 10^3/uL (4.0-10.0)
--- NOTE | 2020-09-21 08:24 | ECGEPIP ---
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
[2020-09-21] MEDS: METOPROLOL SUCC (TopROL XL) 50MG **XL** TAB PO SCH (11:08)
[2020-09-21] MEDS: haloperidoL 1 MG TAB PO PRN ×2 (11:18→22:19)
[2020-09-21] MEDS ORDERED: ISOVUE-370 76% 100ML VIAL As Ordered ONE (12:21)
--- NOTE | 2020-09-21 13:12 | IPNPDOC ---
Subjective Date Seen The patient was seen on 09/21/20. Subjective Chief Complaint/HPI Mr. Londono is a 50 year old male history of polysubstance abuse here with psychosis, ROXANNE 2/2 rhabdomyolysis, and amphetamine use. Yesterday evening, he had his cellphone and was yelling at people. His cellphone was taken away since it had agitated him. This morning, he was agitated and paranoid per nurse. He was given PO Haldol which did calm him down. When I saw him, he was very calm. He did not mention anything about a chip or jew. He complained of back pain and abdominal pain. Back pain has been chronic. Abdominal pain was constant. No changes with food, but better with BM, worse with deep palpation. Objective Physical Examination General Exam: Positive: Cooperative (After haldol), Other (Agitated, delusional, paranoid (before haldol)) Eye Exam: Positive: EOMI; Negative: Sclera icteric ENT Exam: Positive: Mucous membr. moist/pink, Tongue Midline Neck Exam: Positive: Supple Chest Exam: Positive: Clear to auscultation; Negative: Rales, Rhonchi, Wheezing Heart Exam: Positive: Rate Normal, Regular Rhythm Abdomen Exam: Positive: Normal bowel sounds, Soft Extremity Exam: Negative: Edema Skin Exam: Positive: Other skin issue (Scabs on left chin) Neuro Exam: Positive: Other (Unable to perform as he was sedated) Psych Exam: Positive: Oriented x 3, Other (Has psychosis and delusions. He may act on his delusions); Negative: Mental status NL Assessment /Plan Assessment Mr. Londono is a 50 year old male history of polysubstance abuse here with psychosis, ROXANNE 2/2 rhabdomyolysis, and amphetamine use. Per nieceDeanne, patient has started taking amphetamines on Monday and has been having psychosis. It was on Monday, he started making homicidal and suicidal comments. He wanted to do God's work and cut off the face of every [employer]. He also told her to cut off his face as well. Patient will be on suicide precautions. If patient tries to leave against medical advice, he should be brought back until a psychiatrist evaluates him. Consulted psych, recommendations appreciated. Haldol has been used for agitation with good effect Plan/VTE VTE Prophylaxis Ordered?: Yes Plan 1. ROXANNE 2/2 rhabdomyolysis -CPK 2330 -Renal function improved -CPK good -Resolved 2. Amphetamine use -Visual and auditory hallucinations. He has tried acting on these delusions, he has scab maria on face where he tried to pull face off. -Supportive care and minimize stimuli (light and sound) -Haldol PO as needed and Ativan IV as needed for agitations -Sitter 3. Psychosis with homicidal and suicidal ideation -Per brother, patient was preaching homicidal and suicidal comments to the [facility] [place]. He brought patient home when niece saw patient also make homicidal and suicidal comments. She called the police who brought patient here -He asked to niece to cut his face so he can go to [facility]. -He told the niece that he had to do God's work and cut off the face of every Anabaptism so they can go to [facility]. -Suicidal precautions -Consulted psych, recommendations appreciated 4. Hypertension -Blood pressure better controlled -Continue metoprolol 5. Constipation -May be the cause of the abdominal pain -Added Colace and Miralax -Will order CT abd/pelvis to look for other causes 6. Back pain -Continue acetaminophen as needed for back pain 7. DVT ppx -Heparin subq Disposition: Cannot leave AMA, he would need to be brought back to the ED as he had HI/SI. Pending Psych recommendations VS, I&O, 24H, Fishbone Vital Signs/I&O Vital Signs Date Time Temp Pulse Resp B/P (MAP) Pulse Ox O2 Delivery O2 Flow Rate FiO2 09/21/20 11:08 76 143/89 09/21/20 06:00 97.1 17 95 Room Air 09/20/20 06:00 2.0 I&O- Last 24 Hours up to 6 AM 09/21/20 06:00 Intake Total 1620 ml Output Total 0 ml Balance 1620 ml Laboratory Data 24H LABS Laboratory Tests 2 09/21/20 05:50: Nucleated Red Blood Cells % (auto) 0.0, Anion Gap 7L, Glomerular Filtration Rate > 60.0, Calcium Level 7.8L, Total Creatine Kinase 655H CBC/BMP Laboratory Tests 09/21/20 05:50 MICHELLE PETTIT DO Sep 21, 2020 13:12
[2020-09-21] MEDS ORDERED: MIRALAX *UNIT DOSE* 17GM PACKET PO PRN (13:15)
[2020-09-21 14:00] VITALS: BP 111/66
--- NOTE | 2020-09-21 14:10 | REP ---
INDICATION: Back pain. COMPARISON: Comparison radiographs are from March 04, 2019.. TECHNIQUE: Helical scanning is acquired and 4 mm axial images re-formatted. Coronal and sagittal MPR images are generated. Intravenous contrast had been administered prior to CT acquisition for the lumbar spine because of a concomitantly performed abdomen and pelvis CT study. The contrast enhancement dose was 100 mL of intravenous Isovue 370. FINDINGS: High lumbar vertebral body heights are preserved. No fracture or collapse is seen. There is vacuum phenomenon in the narrowed L5-S1 disc space consistent with degenerative disc disease. There is discogenic calcification associated with a right posterior focal disc protrusion at L5-S1. There is right-sided neural foraminal encroachment due to discogenic spurring in the right neural foramen. There is mild discogenic spurring in the foraminal cyst segment of the disc on the left as well. There is no evidence of spondylolysis or spondylolisthesis. Minimal diffuse disc bulging is present at L4-5. There is a left lateral disc protrusion with associated spurring at L4-5. No neural foraminal narrowing is seen. At L3-4 and L2-3 and L1-2, there is no discogenic abnormality. No fracture is seen. Pedicles and posterior elements are intact. No paravertebral hematoma is appreciated. IMPRESSION: Degenerative disc disease at L4-5 and L5-S1. Right posterior disc protrusion and associated spurring at L5-S1 with right neural foraminal narrowing due to discogenic spurring at L5-S1. Left lateral disc protrusion with associated spurring at L4-5. No acute traumatic abnormality. <Electronically signed by Melvin Valente > 09/21/20 [id number]
[2020-09-21] MEDS: DOCUSATE SODIUM 100MG CAPSULE PO SCH ×2 (15:00→21:00)
--- NOTE | 2020-09-21 16:40 | REP ---
INDICATION: Abdominal pain, sharp. COMPARISON: Comparison CT study September 06, 2013.. TECHNIQUE: Helical scanning is acquired and 3 mm axial images re-formatted. Coronal and sagittal MPR images are generated. The CT contrast enhancement dose is 100 mL of intravenous Isovue 370. FINDINGS: Preliminary digital manager creative radiograph is unremarkable. Bowel gas pattern is normal. The lung bases are clear on axial CT images. No evidence of pleural effusion or upper abdominal ascites is seen. There is mild diffuse fatty infiltration of the liver. The spleen is unremarkable. Normal adrenal glands are seen. No abnormality is noted in the pancreas or the gallbladder. Kidneys enhance symmetrically and are morphologically intact. No retroperitoneal mass or adenopathy is seen. Normal caliber aorta is seen. Scattered normal size mesenteric lymph nodes are present. Normal appendix is visible at the level of the cecum just medial to an adjacent loop of small bowel. No inflammatory changes are seen. No evidence of obstructive lesion. There are a few scattered diverticuli in the sigmoid colon without CT evidence of diverticulitis. Seminal vesicles, prostate, and urinary bladder are unremarkable. No abdominal wall defect is seen. Bone window settings demonstrate degenerative disc changes at L5-S1. IMPRESSION: No acute intra-abdominal abnormality. Left colonic diverticulosis without CT evidence of diverticulitis. Mild diffuse fatty infiltration of the liver. Normal appendix seen. <Electronically signed by Melvin Valente > 09/21/20 [id number]
[2020-09-21 22:00] VITALS: BP 123/66
[2020-09-22] MEDS: LORazepam 2 MG/ML VIAL IV PRN ×2 (02:22→19:30)
[2020-09-22 06:00] VITALS: BP 138/75
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
[2020-09-22 07:58] LABS: HEMATOCRIT 42.6 % (42.0-52.0); HEMOGLOBIN 14.3 g/dl (13.5-17.5); MEAN CORPUSCULAR HEMOGLOBIN 29.5 pg (27.0-33.0); MEAN CORPUSCULAR HGB CONC 33.6 g/dl (32.0-36.5); MEAN CORPUSCULAR VOLUME 87.8 fl (80.0-96.0); PLATELET COUNT, AUTOMATED 222 10^3/uL (150-450); RED BLOOD COUNT 4.85 10^6/uL (4.30-6.10); WHITE BLOOD COUNT 6.7 10^3/uL (4.0-10.0)
[2020-09-22 08:15] LABS: BLOOD UREA NITROGEN 13 MG/DL (7-18); CALCIUM LEVEL 8.6 MG/DL (8.5-10.1); CARBON DIOXIDE LEVEL 30 MEQ/L (21-32); CHLORIDE LEVEL 105 MEQ/L (98-107); CREATININE FOR GFR 0.84 MG/DL (0.70-1.30); GLOMERULAR FILTRATION RATE > 60.0 (>60); GLUCOSE, FASTING 92 MG/DL (70-100); POTASSIUM SERUM 3.7 MEQ/L (3.5-5.1); SODIUM LEVEL 141 MEQ/L (136-145)
[2020-09-22] MEDS: METOPROLOL SUCC (TopROL XL) 50MG **XL** TAB PO SCH (09:12)
[2020-09-22] MEDS: DOCUSATE SODIUM 100MG CAPSULE PO SCH ×2 (09:12→19:30)
--- NOTE | 2020-09-22 11:23 | DS.PDOC ---
Discharge Summary General Date of Admission Sep 19, 2020 at 18:14 Date of Discharge 09/22/20 Discharge Summary DISCHARGE DIAGNOSES: Major depressive disorder Amphetamine induced psychotic disorder. Methamphetamine use disorder. psychosis, with auditory and visual hallucinations, delusions of persecution, Acute Rhabdomyolysis Acute kidney injury Drug Abuse Lumbar disc bulges with chronic back pain Incidental finding of a fatty liver Left colonic diverticulosis MOBILE PARAMEDICAL EXAMINER: Dr. Kb Escobar DISCHARGE MEDICATIONS: SEE BELOW DISCHARGE INSTRUCTIONS: Discharged to inpatient mental health unit Avoid nonsteroidal anti-inflammatories and encourage oral fluid intake/avoid dehydration HOSPITAL COURSE: 50-year-old male with history of major depression, polysubstance abuse, methamphetamine-induced psychosis, admitted due to acute rhabdomyolysis. Patient was found to have altered mental status with psychosis including visual and auditory hallucinations with delusions of persecution. Patient was compliance and about for intravenous fluids, to be administered at a sitter at the bedside and was evaluated by psychiatrist, Dr. Escobar who recommended inpatient mental health unit admission After medical clearance. , Creatinine normalized from 1.32 on admission to 0.84 and discharge. You received a total of 2.5 L on 09/19/2020, 1.3 L on 117 and 1.7 L of IV fluids and 118 with decrease in total CK 0F 655 from admission ck of 2330 In the ER. Urine toxicology was positive for amphetamine. Salicylate and acetaminophen of alcohol were negative. Due to complaints of back pain. CT lumbar spine without contrast showed disc bulging at L4-L5 with left lateral disc protrusion and associated spurring at the same area treated with Tylenol. ALLERGIES: Please see below. PHYSICAL EXAMINATION ON DISCHARGE: VITAL SIGNS: Please see below. Eye Exam: Positive: EOMI; Negative: Sclera icteric, diplopia ENT Exam: Positive: Mucous membr. moist/pink, Tongue Midline , No JVD, no carotid bruit Neck Exam: Positive: Supple Chest Exam: Positive: Clear to auscultation; no adventitious breath sounds Negative: Rales, Rhonchi, Wheezing Heart Exam: Positive: Rate Normal, Regular Rhythm , No murmurs noted Abdomen Exam: Positive: Normal bowel sounds, Soft Extremity Exam: Negative: Edema Skin Exam: Positive: Other skin issue (Scabs on left chin) Neuro Exam: Positive: Other (Unable to perform as he was sedated) Psych Exam: Positive: Oriented x 3, Other (Has psychosis and delusions. He may act on his delusions); Negative: Mental status NL LABORATORY DATA: Please see below. IMAGING: See below MRI of the lumbar spine 09/21/2020 Helical scanning is acquired and 4 mm axial images re-formatted. Coronal and sagittal MPR images are generated. Intravenous contrast had been administered prior to CT acquisition for the lumbar spine because of a concomitantly performed abdomen and pelvis CT study. The contrast enhancement dose was 100 mL of intravenous Isovue 370. FINDINGS: High lumbar vertebral body heights are preserved. No fracture or collapse is seen. There is vacuum phenomenon in the narrowed L5-S1 disc space consistent with degenerative disc disease. There is discogenic calcification associated with a right posterior focal disc protrusion at L5-S1. There is right-sided neural foraminal encroachment due to discogenic spurring in the right neural foramen. There is mild discogenic spurring in the foraminal cyst segment of the disc on the left as well. There is no evidence of spondylolysis or spondylolisthesis. Minimal diffuse disc bulging is present at L4-5. There is a left lateral disc protrusion with associated spurring at L4-5. No neural foraminal narrowing is seen. At L3-4 and L2-3 and L1-2, there is no discogenic abnormality. No fracture is seen. Pedicles and posterior elements are intact. No paravertebral hematoma is appreciated. IMPRESSION: Degenerative disc disease at L4-5 and L5-S1. Right posterior disc protrusion and associated spurring at L5-S1 with right neural foraminal narrowing due to discogenic spurring at L5-S1. Left lateral disc protrusion with associated spurring at L4- 5. No acute traumatic abnormality. <Electronically signed by Melvin Valente > 09/21/[address] abdomen and pelvis 09/21/2020 Helical scanning is acquired and 3 mm axial images re-formatted. Coronal and sagittal MPR images are generated. The CT contrast enhancement dose is 100 mL of intravenous Isovue 370. FINDINGS: Preliminary digital rn house supervisor radiograph is unremarkable. Bowel gas pattern is normal. The lung bases are clear on axial CT images. No evidence of pleural effusion or upper abdominal ascites is seen. There is mild diffuse fatty infiltration of the liver. The spleen is unremarkable. Normal adrenal glands are seen. No abnormality is noted in the pancreas or the gallbladder. Kidneys enhance symmetrically and are morphologically intact. No retroperitoneal mass or adenopathy is seen. Normal caliber aorta is seen. Scattered normal size mesenteric lymph nodes are present. Normal appendix is visible at the level of the cecum just medial to an adjacent loop of small bowel. No inflammatory changes are seen. No evidence of obstructive lesion. There are a few scattered diverticuli in the sigmoid colon without CT evidence of diverticulitis. Seminal vesicles, prostate, and urinary bladder are unremarkable. No abdominal wall defect is seen. Bone window settings demonstrate degenerative disc changes at L5-S1. IMPRESSION: No acute intra-abdominal abnormality. Left colonic diverticulosis without CT evidence of diverticulitis. Mild diffuse fatty infiltration of the liver. Normal appendix seen. <Electronically signed by Melvin Valente > 09/21/20 9002 TIME SPENT ON HOSPITAL DISCHARGE: 30 MINUTES Vital Signs/I&Os Vital Signs Date Time Temp Pulse Resp B/P (MAP) Pulse Ox O2 Delivery O2 Flow Rate FiO2 09/22/20 09:12 74 128/73 09/22/20 06:00 97.1 16 93 Room Air 09/20/20 06:00 2.0 I&O- Last 24 Hours up to 6 AM 09/22/20 06:00 Intake Total 1250 ml Output Total 0 ml Balance 1250 ml Laboratory Data Labs 24H Laboratory Tests 2 09/22/20 07:00: Nucleated Red Blood Cells % (auto) 0.0, Anion Gap 6L, Glomerular Filtration Rate > 60.0, Calcium Level 8.6 CBC/BMP Laboratory Tests 09/22/20 07:00 Discharge Medications Scheduled Metoprolol Succinate (Metoprolol Succinate) 50 Mg Tab.er.24h, 50 MG PO DAILY, (Reported) Scheduled PRN Baclofen (Baclofen) 20 Mg Tablet, 20 MG PO TID PRN for MUSCLE SPASMS, (Reported) Allergies Coded Allergies: No Known Allergies (Unverified , 12/23/15) JOSEPH REID MD Sep 22, 2020 11:23
[2020-09-22 11:37] LABS: CPK CREATINE PHOSPHOKINASE 297 U/L (39-308)
[2020-09-22 14:00] VITALS: BP 121/76
[2020-09-22] MEDS: haloperidoL 1 MG TAB PO PRN (15:25)
[2020-09-22 22:00] VITALS: BP 121/75
[2020-09-23 06:00] VITALS: BP 100/62
[2020-09-23 06:35] LABS: HEMATOCRIT 44.6 % (42.0-52.0); HEMOGLOBIN 15.5 g/dl (13.5-17.5); MEAN CORPUSCULAR HEMOGLOBIN 29.9 pg (27.0-33.0); MEAN CORPUSCULAR HGB CONC 34.8 g/dl (32.0-36.5); MEAN CORPUSCULAR VOLUME 86.1 fl (80.0-96.0); PLATELET COUNT, AUTOMATED 261 10^3/uL (150-450); RED BLOOD COUNT 5.18 10^6/uL (4.30-6.10); WHITE BLOOD COUNT 8.2 10^3/uL (4.0-10.0)
[2020-09-23 06:50] VITALS: BP 131/60
[2020-09-23 07:01] LABS: BLOOD UREA NITROGEN 12 MG/DL (7-18); CALCIUM LEVEL 8.9 MG/DL (8.5-10.1); CARBON DIOXIDE LEVEL 31 MEQ/L (21-32); CHLORIDE LEVEL 104 MEQ/L (98-107); CREATININE FOR GFR 0.96 MG/DL (0.70-1.30); GLOMERULAR FILTRATION RATE > 60.0 (>60); GLUCOSE, FASTING 101 MG/DL (70-100); POTASSIUM SERUM 3.8 MEQ/L (3.5-5.1); SODIUM LEVEL 140 MEQ/L (136-145)
[2020-09-23] MEDS: DOCUSATE SODIUM 100MG CAPSULE PO SCH (08:36)
[2020-09-23 08:37] VITALS: BP 125/80
[2020-09-23] MEDS: METOPROLOL SUCC (TopROL XL) 50MG **XL** TAB PO SCH (08:37)
--- NOTE | 2020-09-23 11:22 | IPNPDOC ---
Date Seen The patient was seen on 09/23/20. Progress Note SUBJECTIVE: no c/o pain, sob. discharge to [facility] postponed 09.22.19 due to no bed availability. remains w sitter at the bedside. no issues overnight. PHYSICAL EXAMINATION : VITAL SIGNS: Please see below. Gen: aaox 3 lying on left side in position no distress, pallor, or cyanosis HEENT: no jvd, thyromegaly or cervical LAD Lungs: CTAB Heart: S1S2 RRR abd: soft nt nd +bs x 4quadrants ext: no c/c/e LABORATORY DATA: Please see below. IMAGING: See below MRI of the lumbar spine 09/21/2020 Helical scanning is acquired and 4 mm axial images re-formatted. Coronal and sagittal MPR images are generated. Intravenous contrast had been administered prior to CT acquisition for the lumbar spine because of a concomitantly performed abdomen and pelvis CT study. The contrast enhancement dose was 100 mL of intravenous Isovue 370. FINDINGS: High lumbar vertebral body heights are preserved. No fracture or collapse is seen. There is vacuum phenomenon in the narrowed L5-S1 disc space consistent with degenerative disc disease. There is discogenic calcification associated with a right posterior focal disc protrusion at L5-S1. There is right-sided neural foraminal encroachment due to discogenic spurring in the right neural foramen. There is mild discogenic spurring in the foraminal cyst segment of the disc on the left as well. There is no evidence of spondylolysis or spondylolisthesis. Minimal diffuse disc bulging is present at L4-5. There is a left lateral disc protrusion with associated spurring at L4-5. No neural foraminal narrowing is seen. At L3-4 and L2-3 and L1-2, there is no discogenic abnormality. No fracture is seen. Pedicles and posterior elements are intact. No paravertebral hematoma is appreciated. IMPRESSION: Degenerative disc disease at L4-5 and L5-S1. Right posterior disc protrusion and associated spurring at L5-S1 with right neural foraminal narrowing due to discogenic spurring at L5-S1. Left lateral disc protrusion with associated spurring at L4- 5. No acute traumatic abnormality. <Electronically signed by Melvin Valente > 09/21/[address] abdomen and pelvis 09/21/2020 Helical scanning is acquired and 3 mm axial images re-formatted. Coronal and sagittal MPR images are generated. The CT contrast enhancement dose is 100 mL of intravenous Isovue 370. FINDINGS: Preliminary digital stock sorter radiograph is unremarkable. Bowel gas pattern is normal. The lung bases are clear on axial CT images. No evidence of pleural effusion or upper abdominal ascites is seen. There is mild diffuse fatty infiltration of the liver. The spleen is unremarkable. Normal adrenal glands are seen. No abnormality is noted in the pancreas or the gallbladder. Kidneys enhance symmetrically and are morphologically intact. No retroperitoneal mass or adenopathy is seen. Normal caliber aorta is seen. Scattered normal size mesenteric lymph nodes are present. Normal appendix is visible at the level of the cecum just medial to an adjacent loop of small bowel. No inflammatory changes are seen. No evidence of obstructive lesion. There are a few scattered diverticuli in the sigmoid colon without CT evidence of diverticulitis. Seminal vesicles, prostate, and urinary bladder are unremarkable. No abdominal wall defect is seen. Bone window settings demonstrate degenerative disc changes at L5-S1. IMPRESSION: No acute intra-abdominal abnormality. Left colonic diverticulosis without CT evidence of diverticulitis. Mild diffuse fatty infiltration of the liver. Normal appendix seen. <Electronically signed by Melvin Valente > 09/21/20 3847 ASSESSMENT AND PLAN: 50-year-old male with history of psychosis. Amphetamine use. Homicidal and suici lilian ideation. Chronic back pain, constipation, admitted to the medical floor due to acute kidney injury secondary to rhabdomyolysis treated with IV fluids with resolution and medically stable for discharge to inpatient mental health UNIT. awaiting bed availability VS, I&O, 24H, Fishbone Vital Signs/I&O Vital Signs Date Time Temp Pulse Resp B/P (MAP) Pulse Ox O2 Delivery O2 Flow Rate FiO2 09/23/20 08:37 71 125/80 09/23/20 06:00 96.8 18 96 Room Air 09/20/20 06:00 2.0 I&O- Last 24 Hours up to 6 AM 09/23/20 06:00 Intake Total 1915 ml Output Total 0 ml Balance 1915 ml Laboratory Data 24H LABS Laboratory Tests 2 09/23/20 05:55: Nucleated Red Blood Cells % (auto) 0.0, Anion Gap 5L, Glomerular Filtration Rate > 60.0, Calcium Level 8.9 CBC/BMP Laboratory Tests 09/23/20 05:55 JOSEPH REID MD Sep 23, 2020 11:20
[2020-09-23 14:00] VITALS: BP 126/80
[2020-09-23] MEDS: haloperidoL 1 MG TAB PO PRN (14:10)
== END 2020-09-23 17:08 | DRG 351 ==
LOC: M ED 13:45 → M ED INP 18:14 → ENRESERV 18:53 → M MSPAV 20:20
PROVIDERS: ADMIT Internal Medicine; ATTEND General Practice
DX: M62.82 Rhabdomyolysis (principal); N17.9 Acute kidney failure, unspecified; R45.851 Suicidal ideations; F15.151 Other stimulant abuse with stimulant-induced psychotic disorder with hallucinations; R45.850 Homicidal ideations; K76.0 Fatty (change of) liver, not elsewhere classified; I10 Essential (primary) hypertension; F32.9 Major depressive disorder, single episode, unspecified; K57.30 Diverticulosis of large intestine without perforation or abscess without bleeding; M54.5 Low back pain; K21.9 Gastro-esophageal reflux disease without esophagitis; F41.9 Anxiety disorder, unspecified; K59.00 Constipation, unspecified

== ENCOUNTER 2020-09-23 16:32 | Inpatient (IN) | payer MEDICAID, OTHER ==
[~2020-09-23] VITALS: Ht 177.8 cm; Wt 83.3 kg
[2020-09-23] MEDS: METOPROLOL SUCC (TopROL XL) 50MG **XL** TAB PO SCH (09:00)
[~2020-09-23 16:32] MED LIST changes: +BACL1TAB9 PO; +METO1TAB7 PO; +NAPR-885 PO
[2020-09-23] MEDS ORDERED: haloperidoL 5 MG TAB PO PRN (16:45)
[2020-09-23] MEDS ORDERED: LORazepam 1 MG TAB PO PRN (16:45)
[2020-09-23] MEDS ORDERED: MOM 30ML SUSPENSION UDC PO PRN (16:45)
[2020-09-23] MEDS ORDERED: ACETAMINOPHEN TAB 650MG DOSE (2X325MG) PO PRN (17:00)
[2020-09-23] MEDS ORDERED: MAALOX 30 ML SUSP *UDC PO PRN (17:00)
--- OUTSIDE RECORDS SUMMARY | 2020-09-23 17:32 | CCD ---
Author Author [facility] Organization [facility] Address Unknown Phone Unavailable Care Team Providers Care Stick Feeder Name Role Phone Yolis GUTIERREZ Unavailable Unavailable MATTYolisHEN PA Unavailable Unavailable MATT M CYNDI PA [...] MATT, Yolis HANNA PA Unavailable Unavailable MATT, M CYNDI PA [...] protected by Article 27-F of the [place] Public [employer] law. If you continue you may have access to information: Regarding HIV / AIDS; Provided by facilities licensed or operated by the [place] Office of Mental Health; or Provided by the [place] Office for People With Developmental Disabilities. If such information is present, then the following [place] mandated warning applies: This information has been [...] law may result in a fine or assisted sentence or both. A general authorization for the release of medical or other information is NOT sufficient authorization for further disc losure. Encounters Encounter Providers Location Date Indications Data Source(s ) Outpatient Attender: CYNDI FLYNN Physical Therapy 12/2019 12:30:00 PM EST [facility] ([facility]) Outpatient Attender: CYNDI FLYNN Physical Therapy 09/05 01:45:00 PM EST [facility] ([facility]) Medications Medication Brand Name Start Date Product Form Dose Route Admi nistrative Instructions Pharmacy Instructions Status Indications Reaction Description Data Source(s) tizanidine 4 MG Oral Tablet Tizanidine HCL 11/06/2019 12:00:00 AM EST ORAL active [facility] ([facility]) Insurance Providers Payer name Policy type / Coverage type Policy ID Covered libertarian ID Covered libertarian's relationship to fleming Policy Fleming Plan Information [facility] [id number] SP [id number] [facility] [id number] SP [id number] [facility] [id number] SP [id number] [facility] [id number] SP [id number] [facility] Plan Commercial [id number] Self [id number] OTHER NO FAULT [id number] [place] [id number] [facility] COMM[facility] PLAN [facility] [id number] SP [id number] MEDICAID [id number] SP [id number] [employer] [place] [id number] SP [id number] SELF PAY ONLY [id number] SP [id number] [facility] COMMUNITY PLAN [facility] [facility] [id number] SP [id number] SELF PAY [id number] SP [id number] SELF PAY ONLY [id number] SP [id number] MEDICAID M [id number] S [id number] Surgeries/Procedures Procedure Description Date Indications Data Source(s) Physical Therapy Eval - Low Complexity 10/15/2019 12:0 0:00 AM EST [facility] ([facility] ) THERAPEUTIC PX 1/> AREAS EACH 15 MIN EXERCISES 019 12:00:00 AM EST [facility] ([facility] ) MANUAL THERAPY TQS 1/> REGIONS EACH 15 MINUTES 019 12:00:00 AM EST [facility] ([facility] ) THERAPEUTIC PX 1/> AREAS EACH 15 MIN EXERCISES 019 12:00:00 AM EST [facility] ([facility] ) MANUAL THERAPY TQS 1/> REGIONS EACH 15 MINUTES 019 12:00:00 AM EST [facility] ([facility] ) THERAPEUTIC PX 1/> AREAS EACH 15 MIN EXERCISES 12:00:00 AM EST [facility] ([facility]) MANUAL THERAPY TQS 1/> REGIONS EACH 15 MINUTES 12:00:00 AM EST [facility] ([facility]) THERAPEUTIC PX 1/> AREAS EACH 15 MIN EXERCISES 12:00:00 AM EST [facility] ([facility]) MANUAL THERAPY TQS 1/> REGIONS EACH 15 MINUTES 12:00:00 AM EST [facility] ([facility]) Results ID Date Data Source [id number] 09/19/2020 05:18:00 PM EST [facility] Name Value Range Interpretation Code Description Data Pratima rce(s) Supporting Document(s) SARS coronavirus 2 RNA [Presence] in Res piratory specimen by RONY with probe detection NEGATIVE [facility] This lab was ordered by [facility] a nd reported by [facility]. Procedure
[2020-09-23] MEDS ORDERED: traZODone 50 MG TAB PO PRN (21:00)
[2020-09-24 08:10] VITALS: BP 140/76
[2020-09-24] MEDS: METOPROLOL SUCC (TopROL XL) 50MG **XL** TAB PO SCH (08:10)
--- NOTE | 2020-09-24 17:30 | MHHPEPDOC ---
General Date Of Admission: Sep 23, 2020 Legal Status: 9.39 Chief Complaint "Patient states I am here because I got high on Berry have been self- medicating". History of Present Illness HISTORY OF THE PRESENT ILLNESS: Patient is a 50 -year-old , single, unemployed domicile , male, who presents to inpatient mental health unit on the . Legal status after he was medically cleared on the medical unit . Patient was initially admitted to medicine due to Rhabdomyolysis secondary to substance use disorder. He was also seen as psychotic on the unit. He had intermittent cognitive functioning and at times during his medical admission. He would have visual and auditory hallucinations, having responding to internal stimuli and reaching for objects that weren't there, according to his medical chart. According to ED chart, patient had been awake for 8 days and spending $100 a day on Berry. He was religiously preoccupied, speaking with Balaij, who told him to chip out his eye. . Psychiatric Review of Systems Depression (2 or more weeks): depressed mood, anhedonia, insomnia/hypersomnia, decreased energy, difficulty concentrating, psychomotor changes Laura (4 or more days of): denies Psychosis: auditory hallucination (prior to admission), visual hallucination (prior to admission, not observed with AH/VH), delusions PTSD: denies Anxiety: denies Past Psychiatric History Previous Psychiatric Diagnosis: Unspecified Depressive Disorder Previous Psychiatric Admissions: Multiple admissions Suicide Attempts: Denies Psychiatric Follow-up: None Currently, Johnny has gone to rehabilitation twice. Reports that he was in a half-way house in 2009 Psychiatric medications: In the past has had Effexor and Vistaril Past Medical History Medical Problems Patient reports he has what he believes is rheumatoid arthritis and chronic back pain 20 years. Anxiety Pyloric stenosis as a child GERD HTN Head Injury: No Seizures: No Hospitalizations: Yes Surgeries: Yes Family Medical/Psychiatric HX Medical Problems Maternal family with diabetes, depression and anxiety. No reported suicide that were completed. Denies any addictions in his family One child committed suicide at age 18 by gunshot Psychiatric Disorders: Yes Addiction: No Suicide Attemps/Completions: Yes Addiction History nicotine, cocaine, amphetamines, methamphetamines, other (berry $100 per day, cannabis) Social History [Patient states he was born in [place], moved to [place] in [place] state return to [place]. . He grew up in a two-parent home. He was third child of 6 children. Reports that he had a good childhood .He graduated high school, has some college credits. He is not currently employed and was living with this. Current marital status single, never read 3 adult children. He has very little contact with .This had past legal charges of drug possession and a DWI attended 15 years ago. States that he has no spiritual or cultural experiences that this hospital needs to recognize states that he is Voodoo as a tenriism has never been a victim of crime. Denies any traumatic childhood experiences. He is currently single. Reports that his stressors are drugs and women. His supports are his parents and brother ]. Mental Status Examination General Appearance: unkempt, disheveled, hospital scubs/clothing Build: average Demeanor: average Eye Contact: average Activity: average Behavior: cooperative Speech: clear Mood: depressed, anxious Affect: flat Thought Process: logical/linear Thought Content (Delusions): none reported Thought Content (Other): none reported Thought Content (Aggressive): none reported Perception (Hallucinations): none reported Perception (Other): none reported Cognition (Impairment of): none reported Cognition(Intelligence Est.): average Oriented: Awake, Alert, Oriented times three Insight: fair Judgment: Fair Diagnoses Unspecified psychotic disorder. Methamphetamine use disorder per history. Stimulant use disorder. Tobacco use disorder Per patient history of Depression and Anxiety A-FIB/CHADSVASC A-FIB History Current/History of A-Fib/PAF?: No Current PO Anticoag Therapy: No Assessment Patient is a 50-year-old single, domiciled unemployed male who presents to inpatient mental health on a 939. Legal status patient was directly admitted from medicine due to psychotic symptoms. He was initially admitted to medical unit for Rhabdomyolysis secondary to amphetamine use. Psychotic disorder. , According to reports from medicine. Patient was vacillating between having cognitive impairment and having normal mentation. He had visual and auditory hallucinations speaking to people who were not there and reaching for objects that weren't there. He was quite agitated and was medicated with Ativan 2 mg twice On this occasion patient is alert and oriented, he appears older than his stated age of [age] years old. Dressed appropriately in hospital scrubs. His hygiene and grooming, is fair. His speech is normal tone, normal volume in conversant. Patient is calm and cooperative in the interview. He is aware of his environment are severely good historian. Reports that he is depressed and anxious. States that this stems from chronic back pain. He reports no previous injury but believes that he has rheumatoid arthritis. He does appear depressed, anxious. Patient was met in his room. He is lying on his bed. His thought process is linear and goal oriented. He does not appear paranoid or delusional. He is not currently hallucinating. No obsessions or ruminations. He is alert, oriented to person, place, time and situation. His memory is intact, both short-term and long-term. His insight and judgment appear to be fair. Patient reports long history of drug use. States that he self medicates with Berry for his rheumatoid arthritis. He is agreeable to starting Effexor 37.5 mg and Vistaril 50 mg every 6 hours when necessary for anxiety action has previously trialed on this and he states that Effexor has worked well for him Initial Treatment Plan 1. Patient was admitted on a [9.39] status. 2. Complete history was obtained. 3. With patients permission, family will be contacted and database will be expanded. 4. Patients medication regimen will be reviewed and changed accordingly. 5. Patient will be provided with protected environment. 6. Patient will be treated with individual, group, and milieu therapies. 7. Patient will receive supportive psych-education. 8. Discharge planning will commence immediately. 9. Outpatient follow-up treatment will be strongly recommended. 10. The initial treatment plan will focus initially on: * Depression. * Risk for suicide. * altered thoughts * substance use ESTIMATED LENGTH OF STAY: 3-5 DAYS. TIME SPENT COUNSELING AND COORDINATING INITIAL CARE: 60 minutes. Vital Signs Vital Signs Date Time Temp Pulse Resp B/P (MAP) Pulse Ox O2 Delivery O2 Flow Rate FiO2 09/24/20 08:10 97.4 86 18 140/76 (97) 98 Room Air Medications Scheduled Metoprolol Succinate (Metoprolol Succinate) 50 Mg Tab.er.24h, 50 MG PO DAILY, (Reported) Scheduled PRN Baclofen (Baclofen) 20 Mg Tablet, 20 MG PO TID PRN for MUSCLE SPASMS, (Reported) Allergies Coded Allergies: No Known Allergies (Unverified , 12/23/15) ALEIDA ALARCON NP Sep 24, 2020 16:44
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
[2020-09-24 18:01] VITALS: BP 145/87
[2020-09-24] MEDS: VENLAFAXINE 37.5 MG TAB PO SCH (21:24)
[2020-09-25 06:00] VITALS: BP 141/86
[2020-09-25] MEDS: METOPROLOL SUCC (TopROL XL) 50MG **XL** TAB PO SCH (08:43)
[2020-09-25] MEDS: VENLAFAXINE 37.5 MG TAB PO SCH (08:43)
--- NOTE | 2020-09-25 12:13 | MHIPNPDOC ---
[facility] Progress Note Progress Note DATE OF SERVICE: 09/25/20 HISTORY: Patient is a 50 -year-old, single, unemployed domicile , male, who presents to inpatient mental health unit on the 39 Legal status after he was medically cleared on the medical unit . Patient was initially admitted to medicine due to Rhabdomyolysis secondary to substance use disorder. He was also seen as psychotic on the unit. He had intermittent cognitive functioning and at times during his medical admission. He would have visual and auditory hallucinations, having responding to internal stimuli and reaching for objects that weren't there, according to his medical chart. According to ED chart, patient had been awake for 8 days and spending $100 a day on Cinthia. He was religiously preoccupied, speaking with Balaji, who told him to chip out his eye. VITAL SIGNS: See below. CURRENT MEDICATIONS: See below. MENTAL STATUS EXAMINATION: Patient is a 50-year old Single, Unemployed, Undomiciled (due to his parent's not inviting him back into the home, male, who is admitted to psychiatry for psychosis secondary to his admitted Methamphetamine Use. General Appearance: unkempt, disheveled, hospital scrubs/clothing Build: average Demeanor: average Eye Contact: average Activity: average Behavior: cooperative Speech: clear Mood: depressed, anxious, but improved from yesterday Affect: flat Thought Process: logical/linear Thought Content (Delusions): none reported Thought Content (Other): none reported Thought Content (Aggressive): none reported Perception (Hallucinations): none reported Perception (Other): none reported Cognition (Impairment of): none reported Cognition(Intelligence Est.): average Oriented: Awake, Alert, Oriented times three Insight: fair Judgment: Fair DIAGNOSES: Unspecified psychotic disorder. Methamphetamine use disorder per history. Stimulant use disorder. Tobacco use disorder Per patient history of Depression and Anxiety ASSESSMENT: Patient is alert and oriented in the individual session, he is agreeable to meeting with this provider and [employer] student. He appears much older than his stated age, he is dressed appropriately, hygiene and grooming is fair. He has good eye contact and is not observed with psychomotor agitation or retardation. Patient is reporting continued depression and anxiety but does not make mention of his substance use or abuse of "Cinthia". He reported on initial evaluation that he was self-medicating with Cinthia due to chronic back pain but was experiencing depression and anxiety as well. [employer] Engine [employer] Student [place] has been in touch with his brother. Family wants patient to go to [place] to a [facility] which would be 9 months. In his interview he appears to be agreeable to this, and reports that this may be the best plan for him because he does not believe that he will be welcomed back to his parent's home. He states that he is happy with his current medication regimen, requesting Seroquel for HS and is motivated to go to Rehab. He remained calm and cooperative throughout the interview. There were no overt delusions or hallucinations observed in the interview. His mood appears to be mildly improved in mood and affect from yesterday. He does appear mildly tired. He voices no judaism speech or delusional thinking to injure himself. MANAGEMENT PLAN: Continue all medications Discharge on Monday if brother is agreeable to having him stay with him until the Rehab can take him. Trazodone discontinued, Seroquel 100 mg HS initiated Patient will be going to rehab with his brother's assistance to [employer] TIME SPENT: 25 minutes. Vital Signs Vital Signs Date Time Temp Pulse Resp B/P (MAP) Pulse Ox O2 Delivery O2 Flow Rate FiO2 09/25/20 08:43 85 116/70 09/25/20 06:00 97.9 17 99 09/24/20 08:10 Room Air Current Medications Current Medications Medications (Trade) Dose Ordered Sig/Kiesha Route PRN Reason Start Time Stop Time Status Last Admin Dose Admin Acetaminophen (Tylenol Tab) 650 mg Q6HP PRN PO HEADACHE or DISCOMFORT 09/23/20 17:00 Al Hydrox/Mg Hydrox/Simethicone (Mylanta) 30 ml Q4HP PRN PO HEARTBURN/INDIGESTION 09/23/20 17:00 Baclofen (Lioresal) 20 mg TIDP PRN PO MUSCLE SPASM 09/23/20 09:00 Haloperidol (Haldol) 5 mg Q6HP PRN PO AGITATION 09/23/20 16:45 Hydroxyzine HCl (Atarax) 50 mg Q6HP PRN PO Anxiety 09/24/20 16:45 Lorazepam (Ativan) 1 mg TIDP PRN PO ANXIETY 09/23/20 16:45 09/24/20 16:41 DC 09/24/20 08:10 Magnesium Hydroxide (Milk Of Magnesia) 30 ml DAILYPRN PRN PO CONSTIPATION 09/23/20 16:45 Metoprolol Succinate (TopROL XL) 50 mg DAILY PO 09/23/20 09:00 09/25/20 08:43 Quetiapine Fumarate (SEROquel) 100 mg QHS PO 09/25/20 21:00 Trazodone HCl (Desyrel) 50 mg QHSP PRN PO INSOMNIA 09/23/20 21:00 09/25/20 10:30 DC 09/24/20 21:24 Venlafaxine HCl (Effexor Xr) 37.5 mg DAILY PO 09/26/20 09:00 Venlafaxine HCl (Effexor) 37.5 mg BID PO 09/24/20 21:00 09/25/20 10:27 DC 09/25/20 08:43 Allergies Coded Allergies: No Known Allergies (Unverified , 12/23/15) ALEIDA ALARCON NP Sep 25, 2020 11:59
[2020-09-25] MEDS: hydrOXYzine 50 MG TAB PO PRN ×2 (14:22→21:04)
[2020-09-25 16:12] VITALS: BP 129/84
[2020-09-25] MEDS ORDERED: QUEtiapine FUMARATE 100 MG TAB PO SCH (21:00)
[2020-09-26 06:38] VITALS: BP 138/80
[2020-09-26] MEDS: hydrOXYzine 50 MG TAB PO PRN ×2 (08:10→20:33)
[2020-09-26] MEDS: METOPROLOL SUCC (TopROL XL) 50MG **XL** TAB PO SCH (08:12)
[2020-09-26] MEDS ORDERED: VENLAFAXINE **XR** 37.5 MG CAPSULE PO SCH (09:00)
[2020-09-26 16:31] VITALS: BP 140/80
[2020-09-26] MEDS: QUEtiapine FUMARATE 200 MG TAB PO SCH (20:33)
--- NOTE | 2020-09-26 21:44 | MHIPNPDOC ---
[facility] Progress Note Progress Note Subjective: Jean is a 50 year old male with a history of Stimulant use disorder who was transferred from the Medicine floors, (after initially being medically hospitalized for rhabdomyolysis, secondary to a week long binge with Ecstasy), for further psychiatric treatment, stabilization and care. Jean states that he has been self-medicating with drugs, namely, Ecstasy, to help get reprieve from his lower back pain. I know its not a good solution, and now its really starting to catch up with me. Endorsing depressive symptoms including anergia, anhedonia, poor concentration and initial insomnia, since the drug binge occurred. States that he tolerated both the Effexor and Seroquel well, since it was prescribed during this hospitalization. Theyre both working well for me; Can the dose go up a bit? Denies any current passive or active suicidal or homicidal ideation, intent or plan. States that he is now motivated to attend Rehab and he would like to do know different options in the surrounding area for this. Objective: He was seen and evaluated, alert and oriented times three, cognition fair, poor hygiene, disheveled/unkempt, overweight, appears older than stated age, good eye contact, somewhat psychomotor retarded; Speech is normal in production, fast in rate and normal in volume. Mood: better than before, affect: bright; TP are circumstantial and perseverative; TC contains depressive themes but he denies any current passive or active suicidal or homicidal ideation, intent or plan. Denies AH/VH/TH; insight, impulse control and judgment are poor Diagnosis: Stimulant use disorder, severe type Unspecified depressive disorder r/o substance induced mood disorder A/P: Jean is a 50 year old male with a history of Stimulant use disorder who was transferred from the Medicine floors, (after initially being medically hospitalized for rhabdomyolysis, secondary to a week long binge with Ecstasy), for further psychiatric treatment, stabilization and care. 1) Increased Effexor XR to 75 mg q am to help alleviate mood and anxiety symptoms; Increased Seroquel to 200 mg qhs for mood stabilization/insomnia. 2) Continue to collaborate with treatment team and Hospitalist. 3) Q 15 min checks 4) Collaborate with discharge planners for the safest, most optimal, discharge, upon his clinical stabilization. (Likely inpatient Rehab in [place]) 5) Continue to encourage participation with group programming and activities on the unit. Total time spent: 30 minutes Vital Signs Vital Signs Date Time Temp Pulse Resp B/P (MAP) Pulse Ox O2 Delivery O2 Flow Rate FiO2 09/26/20 16:31 98.4 68 18 140/80 (100) 96 Room Air Current Medications Current Medications Medications (Trade) Dose Ordered Sig/Kiesha Route PRN Reason Start Time Stop Time Status Last Admin Dose Admin Acetaminophen (Tylenol Tab) 650 mg Q6HP PRN PO HEADACHE or DISCOMFORT 09/23/20 17:00 09/26/20 20:34 Al Hydrox/Mg Hydrox/Simethicone (Mylanta) 30 ml Q4HP PRN PO HEARTBURN/INDIGESTION 09/23/20 17:00 Baclofen (Lioresal) 20 mg TIDP PRN PO MUSCLE SPASM 09/23/20 09:00 Haloperidol (Haldol) 5 mg Q6HP PRN PO AGITATION 09/23/20 16:45 Hydroxyzine HCl (Atarax) 50 mg Q6HP PRN PO Anxiety 09/24/20 16:45 09/26/20 20:33 Lorazepam (Ativan) 1 mg TIDP PRN PO ANXIETY 09/23/20 16:45 09/24/20 16:41 DC 09/24/20 08:10 Magnesium Hydroxide (Milk Of Magnesia) 30 ml DAILYPRN PRN PO CONSTIPATION 09/23/20 16:45 Metoprolol Succinate (TopROL XL) 50 mg DAILY PO 09/23/20 09:00 09/26/20 08:12 Quetiapine Fumarate (SEROquel) 100 mg QHS PO 09/25/20 21:00 09/26/20 15:51 DC 09/25/20 21:04 Quetiapine Fumarate (SEROquel) 200 mg QHS PO 09/26/20 21:00 09/26/20 20:33 Trazodone HCl (Desyrel) 50 mg QHSP PRN PO INSOMNIA 09/23/20 21:00 09/25/20 10:30 DC 09/24/20 21:24 Venlafaxine HCl (Effexor Xr) 37.5 mg DAILY PO 09/26/20 09:00 09/26/20 15:51 DC 09/26/20 08:10 Venlafaxine HCl (Effexor Xr) 75 mg DAILY PO 09/27/20 09:00 Venlafaxine HCl (Effexor) 37.5 mg BID PO 09/24/20 21:00 09/25/20 10:27 DC 09/25/20 08:43 Allergies Coded Allergies: No Known Allergies (Unverified , 12/23/15) KAYLEY DONOHUE MD Sep 26, 2020 21:44
[2020-09-26] MEDS: BACLOFEN 10 MG TAB PO PRN (22:36)
[2020-09-27 06:48] VITALS: BP 147/92
[2020-09-27] MEDS: VENLAFAXINE **XR** 75MG CAPSULE PO SCH (08:13)
[2020-09-27] MEDS: METOPROLOL SUCC (TopROL XL) 50MG **XL** TAB PO SCH (08:14)
[2020-09-27 08:41] VITALS: BP 150/80
--- NOTE | 2020-09-27 15:05 | MHIPNPDOC ---
[facility] Progress Note Progress Note Subjective: Jean is a 50 year old male with a history of Stimulant use disorder and unspecified depressive disorder who was transferred from the Medicine floors, (after initially being medically hospitalized for rhabdomyolysis, secondary to a week long binge with Ecstasy), for further psychiatric treatment, stabilization and care. States that his sleep was much more restful overnight. That increase in Seroquel really helped. States that his mood is improved along with his energy levels. Appetite has also improved. He is visible on the unit and is participating in groups with peers and staff. Denies any current passive or active suicidal or homicidal ideation, intent or plan. I honestly want to do it the right way this time, and when I leave here, go to rehab and stay clean. Objective: He was seen and evaluated, alert and oriented times three, cognition fair, poor hygiene, disheveled/unkempt, overweight, appears older than stated age, good eye contact, no psychomotor abnormalities; Speech is normal in production, fast in rate and normal in volume. Mood: pretty good, affect: bright; TP are circumstantial and perseverative; TC contains depressive themes but he denies any current passive or active suicidal or homicidal ideation, intent or plan. Denies AH/VH/TH; insight, impulse control and judgment are poor Diagnosis: Stimulant use disorder, severe type Unspecified depressive disorder r/o substance induced mood disorder A/P: Jean is a 50 year old male with a history of Stimulant use disorder who was transferred from the Medicine floors, (after initially being medically hospitalized for rhabdomyolysis, secondary to a week long binge with Ecstasy), for further psychiatric treatment, stabilization and care. 1) Continued Effexor XR at 75 mg q am to help alleviate mood and anxiety symptoms; Continued Seroquel at 200 mg qhs for mood stabilization/insomnia. 2) Continue to collaborate with treatment team and Hospitalist. 3) Q 15 min checks 4) Collaborate with discharge planners for the safest, most optimal, disc harge, upon his clinical stabilization. (Likely inpatient Rehab in [place]) 5) Continue to encourage participation with group programming and activities on the unit. Total time spent: 30 minutes Vital Signs Vital Signs Date Time Temp Pulse Resp B/P (MAP) Pulse Ox O2 Delivery O2 Flow Rate FiO2 09/27/20 08:41 64 18 150/80 (103) 09/27/20 06:48 97.9 99 Room Air Current Medications Current Medications Medications (Trade) Dose Ordered Sig/Kiesha Route PRN Reason Start Time Stop Time Status Last Admin Dose Admin Acetaminophen (Tylenol Tab) 650 mg Q6HP PRN PO HEADACHE or DISCOMFORT 09/23/20 17:00 09/26/20 20:34 Al Hydrox/Mg Hydrox/Simethicone (Mylanta) 30 ml Q4HP PRN PO HEARTBURN/INDIGESTION 09/23/20 17:00 Baclofen (Lioresal) 20 mg TIDP PRN PO MUSCLE SPASM 09/23/20 09:00 09/26/20 22:36 Haloperidol (Haldol) 5 mg Q6HP PRN PO AGITATION 09/23/20 16:45 Hydroxyzine HCl (Atarax) 50 mg Q6HP PRN PO Anxiety 09/24/20 16:45 09/26/20 20:33 Lorazepam (Ativan) 1 mg TIDP PRN PO ANXIETY 09/23/20 16:45 09/24/20 16:41 DC 09/24/20 08:10 Magnesium Hydroxide (Milk Of Magnesia) 30 ml DAILYPRN PRN PO CONSTIPATION 09/23/20 16:45 Metoprolol Succinate (TopROL XL) 50 mg DAILY PO 09/23/20 09:00 09/27/20 08:14 Quetiapine Fumarate (SEROquel) 100 mg QHS PO 09/25/20 21:00 09/26/20 15:51 DC 09/25/20 21:04 Quetiapine Fumarate (SEROquel) 200 mg QHS PO 09/26/20 21:00 09/26/20 20:33 Trazodone HCl (Desyrel) 50 mg QHSP PRN PO INSOMNIA 09/23/20 21:00 09/25/20 10:30 DC 09/24/20 21:24 Venlafaxine HCl (Effexor Xr) 37.5 mg DAILY PO 09/26/20 09:00 09/26/20 15:51 DC 09/26/20 08:10 Venlafaxine HCl (Effexor Xr) 75 mg DAILY PO 09/27/20 09:00 09/27/20 08:13 Venlafaxine HCl (Effexor) 37.5 mg BID PO 09/24/20 21:00 09/25/20 10:27 DC 09/25/20 08:43 Allergies Coded Allergies: No Known Allergies (Unverified , 12/23/15) KAYLEY DONOHUE MD Sep 27, 2020 15:05
[2020-09-27] MEDS: hydrOXYzine 50 MG TAB PO PRN (16:00)
[2020-09-27 16:25] VITALS: BP 131/76
[2020-09-27] MEDS: QUEtiapine FUMARATE 200 MG TAB PO SCH (21:14)
[2020-09-27] MEDS: BACLOFEN 10 MG TAB PO PRN (21:15)
[2020-09-28 06:49] VITALS: BP 143/82
[2020-09-28 08:13] VITALS: BP 143/82
[2020-09-28] MEDS: VENLAFAXINE **XR** 75MG CAPSULE PO SCH (08:13)
[2020-09-28] MEDS: METOPROLOL SUCC (TopROL XL) 50MG **XL** TAB PO SCH (08:13)
[2020-09-28] MEDS: hydrOXYzine 50 MG TAB PO PRN (09:06)
[2020-09-28] MEDS ORDERED: VENL75CA47 PO (10:27)
[2020-09-28] MEDS ORDERED: QUET200T2 PO (10:27)
[2020-09-28] MEDS ORDERED: HYDR50TA70 PO (10:27)
[2020-09-28] MEDS ORDERED: BACL1TAB9 PO (10:27)
--- NOTE | 2020-09-28 13:21 | MHDSPDOC ---
[facility] Discharge Summary Discharge Summary DATE OF ADMISSION: Sep 23, 2020 at 17:21 DATE OF DISCHARGE: September 28, 2020 at 1300 DISCHARGE DIAGNOSES: Unspecified psychotic disorder. Methamphetamine use disorder per history. Stimulant use disorder. Tobacco use disorder Unspecified Depressive Disorder REASON FOR ADMISSION: Jean is a 50 year old male with a history of Stimulant use disorder and unspecified depressive disorder who was transferred from the Medicine floors, (after initially being medically hospitalized for rhabdomyolysis, secondary to a week long binge with Ecstasy), for further psychiatric treatment, stabilization and care. States that his sleep was much more restful overnight. That increase in Seroquel really helped. States that his mood is improved along with his energy levels. Appetite has also improved. He is visible on the unit and is participating in groups with peers and staff. Denies any current passive or active suicidal or homicidal ideation, intent or plan. I honestly want to do it the right way this time, and when I leave here, go to rehab and stay clean. CONSULTANTS INVOLVED: See Medical H + P by Hospitalist TREATMENT AND PROGRESS ON THE UNIT: Patient was admitted to the [facility] on a 9.39 legal status he was afforded the following treatment modalities: 1) Individual Therapy 2) Group Therapy 3) Medication Management 4) Milieu Therapy 5) Safe Environment HOSPITAL COURSE: Patient was admitted to [facility] on a 9.39 legal status. He was started on Effexor XR 37.5 and this was increased to 75 mg q am to help alleviate mood and anxiety symptoms; Continued Seroquel at 200 mg qhs for mood stabilization/insomnia. DISCHARGE ASSESSMENT: Patient initially in the interview wants to be transferred medically for back pain. He states that this is the underlying issue as to his substance abuse. He reports a long history of chronic back pain and he infers that he had not been properly diagnosed or treated for his back pain. Patient states "I stopped using my medications because I didn't need it, but I have pain. I was using $4000 worth of Methamphetamines because I am self-medicating. 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 I am not a druggie and that's what everyone thinks I am but I think I have Lupus. They want me to get long-term care help, I just needed the drugs for my pain." Reinforced with the patient that we will make appointments with PCP, pain management and Rheumatoid Specialist for him. He denied offer of [facility] or [facility]. When we reinforced that all of his complaints needed to be brought to his PCP, he reluctantly decided that he could be discharged today to his brother's home. Patient's brother has been adamant that patient needed to be discharged to a Rehab in [place] that he had been setting up. At this writing, it is unclear whether patient is still agreeable to that or if he is possibly sabotaging it himself. Based on today's meeting, patient reports mild anxiety and depression due to back pain. He appears to be motivated for discharge and denies SI/HI. He was not and denies psychotic symptoms and meets criteria for discharge today. MENTAL STATUS EXAMINATION ON DISCHARGE: Patient is a 50-year old Single, Unemployed, Undomiciled (due to his parent's not inviting him back into the home, male, who is admitted to psychiatry for psychosis secondary to his admitted Methamphetamine Use. General Appearance: unkempt, disheveled, hospital scrubs/clothing Build: average Demeanor: average Eye Contact: average Activity: average Behavior: cooperative Speech: clear Mood: depressed, anxious, states that he wants his pain to be addressed Affect: flat Thought Process: logical/linear Thought Content (Delusions): none reported Thought Content (Other): none reported Thought Content (Aggressive): none reported Perception (Hallucinations): none reported Perception (Other): none reported Cognition (Impairment of): none reported Cognition(Intelligence Est.): average Oriented: Awake, Alert, Oriented times three Insight: fair Judgment: Fair MEDICATIONS ON DISCHARGE: see discharge medication reconciliation PLAN/FOLLOWUP ARRANGEMENTS: See train planner's notes, patient's brother wanted him to go to a [place] [facility]hab. According to the patient, he is unable to go to this facility due to his psychotropic medications. Patient states that he does not want to go to [facility] because "they have not helped me" he stated that [facility] "have more drugs than drug dealers do." When asked if he wanted outpatient providers, he vacillated between wanting to get pain medications or get treatment for his substance abuse. We encouraged patient to be seen at [facility], at the time of his interview, he denied wanting any further help. The amount of time spent in the coordination of care for this patient was approximately 25 minutes. Vital Signs/I&Os Vital Signs Date Time Temp Pulse Resp B/P (MAP) Pulse Ox O2 Delivery O2 Flow Rate FiO2 09/28/20 08:13 68 143/82 09/28/20 06:49 98.5 18 98 Room Air Medications Scheduled Baclofen (Baclofen) 20 Mg Tablet, 1 TAB PO TID for muscle spasms, #21 Metoprolol Succinate (Metoprolol Succinate) 50 Mg Tab.er.24h, 50 MG PO DAILY, (Reported) Quetiapine Fumarate (Quetiapine Fumarate) 200 Mg Tablet, 200 MG PO QHS for sleep, #7 Venlafaxine HCl (Venlafaxine HCl ER) 75 Mg Cap.er.24h, 75 MG PO DAILY for mood, #7 Scheduled PRN Baclofen (Baclofen) 20 Mg Tablet, 20 MG PO TID PRN for MUSCLE SPASMS, (Reported) Hydroxyzine HCl (Hydroxyzine HCl) 50 Mg Tablet, 50 MG PO BIDP PRN for Anxiety, #14 Allergies Coded Allergies: No Known Allergies (Unverified , 12/23/15) ALEIDA ALARCON NP Sep 28, 2020 13:02
== END 2020-09-28 13:30 | disposition home or self-care (01) | DRG 754 ==
LOC: M PSY 17:21
PROVIDERS: ADMIT Psychiatry & Neurology Psychiatry; ATTEND Psychiatry & Neurology Psychiatry
DX: F32.9 Major depressive disorder, single episode, unspecified (principal); I10 Essential (primary) hypertension; F15.90 Other stimulant use, unspecified, uncomplicated; F17.200 Nicotine dependence, unspecified, uncomplicated; Z79.899 Other long term (current) drug therapy; K21.9 Gastro-esophageal reflux disease without esophagitis; M54.5 Low back pain; F41.9 Anxiety disorder, unspecified; G47.00 Insomnia, unspecified

== ENCOUNTER → 2021-02-23 | Outpatient (REF) | payer OTHER ==
[~2021-02-23] MED LIST changes: +HYDR50TA70 PO; +QUET200T2 PO
[2021-02-23 18:08] LABS: C REACTIVE PROTEIN QUANTITATIV < 0.30 MG/DL (0.00-0.30); COMPLEMENT C3 139 MG/DL (90-180); COMPLEMENT C4 30 MG/DL (10-40)
[2021-02-23 18:22] LABS: HEPATITIS B SURFACE ANTIBODY POSITIVE (POSITIVE)
[2021-02-23 18:33] LABS: HEPATITIS B SURFACE ANTIGEN NEGATIVE (NEGATIVE)
[2021-02-23 19:06] LABS: HEPATITIS C VIRUS ABY INDEX 1.3 INDEX (<0.8)
== END ==
LOC: M SFHCRHEU 14:30
PROVIDERS: ATTEND Internal Medicine
DX: R76.8 Other specified abnormal immunological findings in serum (principal); M25.40 Effusion, unspecified joint

== ENCOUNTER 2021-03-14 18:02 | Emergency (ER) | payer OTHER ==
[~2021-03-14] VITALS: Ht 177.8 cm; Wt 90.9 kg
[2021-03-14] MEDS ORDERED: GABA-282 (18:09)
[2021-03-14] MEDS ORDERED: QUET400T (18:09)
[2021-03-14] MEDS ORDERED: CIPRODEX OTIC SUSP 7.5ML AS STA (20:02)
[2021-03-14] MEDS ORDERED: AUGMENTIN 875 MG TAB PO ONE (20:05)
[2021-03-14] MEDS ORDERED: CIPR7.5D5 AS (20:05)
[2021-03-14] MEDS ORDERED: ACETAMINOPHEN 500 MG TAB PO ONE (20:05)
[2021-03-14] MEDS ORDERED: AUGM875T28 PO (20:05)
[2021-03-14 20:40] VITALS: BP 142/78
== END 2021-03-14 20:42 | disposition home or self-care (01) ==
LOC: M ED 18:02
DX: H66.92 Otitis media, unspecified, left ear (principal); H60.92 Unspecified otitis externa, left ear; I10 Essential (primary) hypertension; K21.9 Gastro-esophageal reflux disease without esophagitis; G89.29 Other chronic pain; M54.5 Low back pain; F41.9 Anxiety disorder, unspecified; F33.9 Major depressive disorder, recurrent, unspecified; Z79.899 Other long term (current) drug therapy

== ENCOUNTER → 2021-04-05 | Outpatient (CLI) | payer OTHER ==
[~2021-04-05] MED LIST changes: +CIPR7.5D5 AS; +GABA-282; +QUET400T
[2021-04-05 17:57] LABS: BASO # 0.1 10^3/uL (0.0-0.2); EOS # 0.3 10^3/uL (0.0-0.5); EOS % 4.4 % (0.0-3.0); HEMATOCRIT 46.8 % (42.0-52.0); HEMOGLOBIN 15.6 g/dl (13.5-17.5); LYMPH # 2.4 10^3/uL (1.5-5.0); LYMPH % 35.4 % (24.0-44.0); MEAN CORPUSCULAR HEMOGLOBIN 29.3 pg (27.0-33.0); MEAN CORPUSCULAR HGB CONC 33.3 g/dl (32.0-36.5); MONO # 0.7 10^3/uL (0.0-0.8); MONO % 10.1 % (2.0-8.0); NEUTROPHILS # 3.3 10^3/uL (1.5-8.5); NEUTROPHILS % 48.8 % (36.0-66.0); PLATELET COUNT, AUTOMATED 244 10^3/uL (150-450); RED BLOOD COUNT 5.32 10^6/uL (4.30-6.10); WHITE BLOOD COUNT 6.8 10^3/uL (4.0-10.0)
[2021-04-05 18:10] LABS: ALBUMIN 4.2 GM/DL (3.2-5.2); ALT/SGPT 74 U/L (12-78); BILIRUBIN,TOTAL 0.6 MG/DL (0.2-1.0); BLOOD UREA NITROGEN 12 MG/DL (7-18); CALCIUM LEVEL 9.1 MG/DL (8.5-10.1); CARBON DIOXIDE LEVEL 32 MEQ/L (21-32); CHLORIDE LEVEL 107 MEQ/L (98-107); CHOLESTEROL LEVEL 188 MG/DL (<200); CHOLESTEROL RISK RATIO 3.836 (<5); CREATININE FOR GFR 0.94 MG/DL (0.70-1.30); FREE T4 0.82 NG/DL (0.76-1.46); GLOMERULAR FILTRATION RATE > 60.0 (>60); GLUCOSE, FASTING 95 MG/DL (70-100); HDL CHOLESTEROL 49 MG/DL (>40); LDL CHOLESTEROL 121 MG/DL (<100); NON-HDL-C 139 MG/DL; SODIUM LEVEL 141 MEQ/L (136-145); TOTAL PROTEIN 7.1 GM/DL (6.4-8.2); TRIGLYCERIDES LEVEL 91 MG/DL (<150)
== END ==
LOC: M PLALAB 14:13
PROVIDERS: ATTEND Nurse Practitioner Family
DX: Z13.220 Encounter for screening for lipoid disorders (principal); Z13.228 Encounter for screening for other metabolic disorders

== ENCOUNTER → 2021-05-13 | Outpatient (CLI) | payer OTHER ==
[~2021-05-13] MED LIST changes: -QUET400T; +QUET400T2
--- NOTE | 2021-05-18 17:01 | SLEEPHOME ---
DATE: 05/13/2021 ORDERED BY: Latrice Ortega Diagnostic home sleep testing was performed due to concern for the obstructive sleep apnea syndrome. For testing, a NIOX T3 respiratory monitoring device was used. Continuous record was made of pulse, oxygen saturation, air flow, chest and abdominal strain, and body position. There was 9 hours and 59 minutes of data reviewed. There was 6 hours and 59 minutes marked as time in bed. During the interval marked time in bed, there were 49 respiratory events identified of 10 seconds in duration or greater for a respiratory event index of 7. The events were primarily obstructive. Baseline pulse rate 63. Pulse ranged 47-87. Baseline saturation 93%. Saturations fell to 86%. Testing was performed in both the supine and nonsupine positions. IMPRESSION: Abnormal home sleep testing with repetitive respiratory events and oxygen desaturations to 86% with a respiratory event index of 7 is consistent with the obstructive sleep apnea syndrome. RECOMMENDATION: The patient should be encouraged to undergo formal sleep evaluation.
== END ==
LOC: M SLEEP HO 11:08
PROVIDERS: ATTEND Nurse Practitioner Family
DX: G47.00 Insomnia, unspecified (principal)

== ENCOUNTER → 2021-07-28 | Outpatient (CLI) | payer OTHER | LOC: M PLALAB 14:34 | PROVIDERS: ATTEND Nurse Practitioner Family | DX: R10.9 Unspecified abdominal pain (principal) ==

== ENCOUNTER → 2021-08-04 | Outpatient (CLI) | payer OTHER | LOC: M LAB 10:21 | PROVIDERS: ATTEND Internal Medicine | DX: M25.40 Effusion, unspecified joint (principal); M25.511 Pain in right shoulder; M25.512 Pain in left shoulder ==